=== PATIENT | male | born 1950 | race Caucasian/White ===

== ENCOUNTER 2023-10-13 01:21 | Inpatient (IN) | payer OTHER, SELFPAY ==
[2023-10-12 20:29] VITALS: BMI 54.9
[2023-10-12 20:57] LABS: % Basophils 0.5 % (0-2); % Eosinophils 1.8 % (0-6); % Immature Granulocytes 0.4 % (0-0.5); % Lymphocytes 13.4 % (20.5-51.1); % Monocytes 7.6 % (1.7-9.3); % Neutrophils 76.3 % (42.2-75.2); Absolute Basophils 0.1 10^3/uL (0-0.2); Absolute Eosinophils 0.2 10^3/uL (0-0.7); Absolute Immature Granulocytes 0.1 10^3/uL (0-0.05); Absolute Lymphocytes 1.5 10^3/uL (1.2-3.4); Absolute Monocytes 0.9 10^3/uL (0.1-0.6); Absolute Neutrophils 8.8 10^3/uL (1.4-6.5); Hematocrit 53.4 % (39.0-52.0); Hemoglobin 16.9 g/dL (13.0-18.0); Mean Corp Hgb Conc. 31.6 g/dL (33.0-37.0); Mean Corpuscular Hgb 28.1 pg (27.0-31.0); Mean Corpuscular Volume 88.9 fL (80.0-94.0); Mean Platelet Volume 10.6 fL (7.4-10.4); Nucleated Red Blood Cells % 0 % (-); Platelet Count 214 10^3/uL (130-400); Red Blood Cell Count 6.01 10^6/uL (4.70-6.10); Red Cell Dist. Width 14.4 % (11.5-14.5); White Blood Cell Count 11.5 10^3/uL (4.8-10.8)
[2023-10-12 21:00] VITALS: BP 142/98
[2023-10-12 21:17] LABS: ALT (SGPT) 13 U/L (0-50); AST (SGOT) 19 U/L (17-59); Albumin 3.4 g/dl (3.5-5.0); Alkaline Phosphatase 73 U/L (38-126); Blood Urea Nitrogen 14 mg/dl (9-20); Calcium 8.8 mg/dl (8.4-10.2); Carbon Dioxide 32 mmol/L (22-30); Chloride 96 mmol/L (98-107); Estimated Creatinine Clearance > 125 ml/min; Glucose 146 mg/dl (70-99); Potassium 4.5 mmol/L (3.5-5.1); Sodium 136 mmol/L (135-145); Total Bilirubin 0.5 mg/dl (0.2-1.3); Total Protein 6.5 g/dl (6.3-8.2); eGFR > 60.00
[2023-10-12 21:59] LABS: NT-proBNP 1660 pg/ml; Troponin I < 0.012 ng/ml
[2023-10-12 22:00] VITALS: BP 155/99
[2023-10-12 23:00] VITALS: BP 155/101
[2023-10-12 23:44] LABS: COVID-19 Antigen Negative (Negative)
[2023-10-13] VITALS (18 sets, daily range): BP systolic 93–151; BP diastolic 58–94; PULSE 2–95; BMI 53.1; BMI 53.0
--- NOTE | 2023-10-13 00:12 | ED.GENMED ---
History of Present Illness
General
Chief Complaint: Breathing Problem
Source: patient
Exam Limitations: none
Time Seen by Provider: 10/12/23 20:32
Travel History
Have you had any contact with someone who has COVID-19?: No
Do you have any symptoms of coronavirus? Fever > 100 degrees, chills, cough, shortness of breath, sore throat, loss of taste or smell, muscle aches, or headache?: No
History of Present Illness
History of Present Illness:
73-year-old male presents from home with complaints of shortness of breath worsening over the past 2 to 3 days. He has a history of hypertension hyperlipidemia. He also has a history of gcv-uusxuvn-vktqjsczx diabetes. No chest pain or cough. No
fever. He does note leg swelling. Upon EMS arrival he was hypoxic in the upper 80s requiring 2 L of oxygen
Phy Exam
Physical Exam
Physical Exam:
General: Obese male no acute respiratory distress
HEENT: Normocephalic atraumatic
Heart: Irregular rate and rhythm
Lungs: Breath sounds distant bilaterally secondary to body habitus
Extremities: Significant pitting edema bilateral lower extremities
Skin is warm no rash
Scores
Heart Failure Risk
Heart Failure Risk Score: Not Applicable
Course
Orders/Labs/Results
Orders:
Orders
10/12/23 20:28
ECG [Electrocardiogram (*1)] Urgent
Reason for Study: Other
Other Reason for Exam: tachycardia
EKG- Treatment ONCE
10/12/23 20:44
CR Chest Portable - 1 View Urgent
Comment:
Reason For Exam: sob
Reason Study Needs to be Portable: Unable to Transport
10/12/23 20:49
Complete Blood Count/With Diff Urgent
Comprehensive Metabolic Panel Urgent
10/12/23 21:29
NT-proBNP Urgent
Troponin I Urgent
10/12/23 23:11
COVID-19 Antigen Urgent
Source: Nasal Swab
Influenza A+B Rapid Molecular Urgent
CHRIS Source: Nasal Swab
Specimen Description:
10/13/23 00:08
Furosemide [Lasix] 40 mg IV NOW STA
Abnormal Lab Results
10/12/23
20:49
WBC 11.5 H 10^3/uL
(4.8-10.8)
Hct 53.4 H %
(39.0-52.0)
MCHC 31.6 L g/dL
(33.0-37.0)
MPV 10.6 H fL
(7.4-10.4)
Abs Immat Gran (auto) 0.1 H 10^3/uL
(0-0.05)
Absolute Neuts (auto) 8.8 H 10^3/uL
(1.4-6.5)
Absolute Monos (auto) 0.9 H 10^3/uL
(0.1-0.6)
Neutrophils % 76.3 H %
(42.2-75.2)
Lymphocytes % 13.4 L %
(20.5-51.1)
Chloride 96 L mmol/L
(98-107)
Carbon Dioxide 32 H mmol/L
(22-30)
Creatinine 0.5 L mg/dL
(0.7-1.3)
Glucose 146 H mg/dl
(70-99)
Albumin 3.4 L g/dl
(3.5-5.0)
10/12/23 20:49
10/12/23 20:49
Vital Signs
Initial and Last Documented VS:
Initial Vital Signs
Temp Pulse Resp Pulse Ox
98.3 F 102 26 93
10/12/23 20:29 10/12/23 20:29 10/12/23 20:29 03/15/24 20:29
Last Documented Vital Signs
Temp Pulse Resp BP Pulse Ox
98.3 F 110 20 155/99 93
10/12/23 20:29 10/12/23 23:23 10/12/23 23:23 10/12/23 22:00 10/12/23 23:23
MDM/Problems Addressed
Differential Diagnosis Includes:
Shortness of breath. Hypoxic on room air requiring 2 L of oxygen. Looks volume overloaded. Will check labs including BNP chest x-ray troponin. COVID and flu test ordered as well
*Critical Care Note
Total Time (30-74mins, 75-104mins- exclusive of procedures): Not Applicable
Update Note
Update Note:
Chest x-ray shows atelectasis versus pneumonia however patient does not have a fever cough. I do suspect volume overload in the setting of newly diagnosed atrial fibrillation. Lasix ordered. Will keep in hospital secondary to oxygen requirement
and volume overload status with new diagnosis of A-fib
ED Attending Note
-
Portions of this chart may have been created with voice recognition software.� Occasional wrong word or��sound alike� substitutions may have occurred due to the inherent limitations of voice recognition software.
Discharge Plan
Departure
Patient Disposition: Admit
Date of Disposition: 10/13/23
Time of Disposition: 00:12
Admit to: Telemetry
Presentation/result/management discussed w/ accepting MD/DO: Hospitalist
Discharge Problem:
Volume overload, Atrial fibrillation
Prescriptions:
No Action
enalapril maleate 10 mg Tablet
10 mg PO BID
atorvastatin 10 mg Tablet
10 mg PO HS
citalopram 10 mg Tablet
10 mg PO DAILY
alprazolam 0.5 mg Tablet
1 mg PO HS
Patient Comments:
10/12/2023: last filled 10/01/23, 60 tabs for 30 days from [facility]
buspirone 10 mg Tablet
10 mg PO DAILY
Trulicity 4.5 mg/0.5 mL Pen Injector
4.5 mg SC QWEEK
Referrals:
Jonny Brice MD [Family Provider] -
Interventions
Interventions:
*Risk Screen - Suicide Last Done: 10/12/23 20:41
*Neglect/Abuse Screening Last Done: 10/12/23 20:40
*ED COVID-19 Vaccine History Last Done: 10/12/23 20:38
ED- Cardiac Assessment Last Done: 10/12/23 20:39
ED- Pulmonary Assessment Last Done: 10/12/23 23:23
--- NOTE | 2023-10-13 00:30 | HPS.HSE ---
Family Physician
-
Family Physician: Jonny Brice
Chief Complaint
-
SoB
History of Present Illness
73M chronically bed bound for last 15 yrs due to arthritis and body habitat , never patel to , last admission was 4 yrs ago to [facility], Morbidly obese, Class III Obesity ( BMI 54) HTN,DMT2 pw 1 week HX progressive SoB. Denied CP or cough. Denied
chills and rigors.
POx low 90s on RA
No prior HX CHF. No prior HX AF. No prior HX DVT per at bed side.
Medical History
Past Medical History
Past Medical History: Reports HTN, Hypercholesterolemia, NIDDM and Other (Morbidly obese, Class III Obesity ( BMI 54))
Additional Past Medical History:
chronically bed bound for last 15 yrs due to arthritis and body habitat
Past Surgical History: Reports None
Social History
Tobacco: Non-smoker
Alcohol: None
Drug: None
Personal:
Living: With Family
Family History
Family History: Not pertinent
Allergies / Home Medications
Allergies reflects when Allergies were last updated in [facility].
Home Medications with original date entered in [facility]
Allergy/Medication List:
Allergies
Allergy/AdvReac Type Severity Reaction Status Date / Time
No Known Allergies Allergy Unverified 10/12/23 20:38
Home Medications
alprazolam 0.5 mg tablet 1 mg PO HS 10/12/23
atorvastatin 10 mg tablet 10 mg PO HS 10/12/23
buspirone 10 mg tablet 10 mg PO DAILY 10/12/23
citalopram 10 mg tablet 10 mg PO DAILY 10/12/23
dulaglutide 4.5 mg/0.5 mL subcutaneous pen injector (Trulicity) 4.5 mg SC QWEEK 10/12/23
enalapril maleate 10 mg tablet 10 mg PO BID 10/12/23
Review of Systems
-
Constitutional: Reports No Symptoms
EENT: Reports No Symptoms
Respiratory: Reports See HPI and Trouble Breathing
Cardiac: Reports See HPI
Abdomen/GI: Reports No Symptoms
: Reports No Symptoms
Musculoskeletal: Reports No Symptoms
Skin: Reports No Symptoms
Neurological: Reports No Symptoms
Endocrine: Reports No Symptoms
Hematologic/Lymphatic: Reports No Symptoms
Psych: Reports No Symptoms
Physical Exam
Vital Signs
Vital Signs
Temp Pulse Resp BP Pulse Ox
98.3 F 96 20 151/91 91
10/12/23 20:29 10/13/23 00:00 10/12/23 23:23 10/13/23 00:00 10/13/23 00:00
Physical Exam
General: Other (Morbidly obese, Class III Obesity ( BMI 54))
HEENT: NormoCephalic, Anicteric, Moist mucous membranes and No Ptosis
Respiratory: Other (very limited exam due to body habitat); No Wheezes
Cardiac: S1/S2 and Irregular Rhythm
Breast: Deferred by me
GI: Soft, Non Tender and Other (Morbidly obese, abdomen )
Rectal: Deferred by Provider
Genito-urinary: Deferred by me
Musculoskeletal: Edema, Left Lower Extremity (trace) and Edema, Right Lower Extremity (1 plus )
Skin: Warm
Neuro: AO x 3
Psych: Calm
Laboratory Results
-
10/12/23 20:49
10/12/23 20:49
Laboratory Results
Total Bilirubin 0.5 mg/dl (0.2-1.3) 10/12/23 20:49
AST 19 U/L (17-59) 10/12/23 20:49
ALT 13 U/L (0-50) 10/12/23 20:49
Alkaline Phosphatase 73 U/L (38-126) 10/12/23 20:49
Troponin I < 0.012 ng/ml 10/12/23 21:29
Data Reviewed
-
Diagnostic Radiology: Report Reviewed by me
Medical Tests (Nuc Med, Echo, EKG etc): Report Reviewed by me
Lab Data: Labs Reviewed by me
Impression/Plan
-
Reviewed VS: reviewed POx 93 % on 3L NC O2 HR 90s -100s BP 150/90
Data
WCC 11.5
Hgb 16.9
Cl 96 CO2 32
Cr 0.5
eGFR > 60
NEG TPNI
pro BNP 1660
NEG Covid Ag
EKG report
ATRIAL FIBRILLATION WITH RAPID VENTRICULAR RESPONSE
RIGHT AXIS DEVIATION
NONSPECIFIC T WAVE ABNORMALITY
ABNORMAL ECG
NO PREVIOUS ECGS AVAILABLE
CXR:
Marked left hemidiaphragm elevation with left hemithorax volume loss.
Moderate left basilar atelectasis and/or pneumonia.
ASSESSMENT & PLAN
Dyspnea with Hypoxia
DDX: New onset AF with RVR in 100s, Mild Volume expansion +/_acute HF , acute PE, OHVS /CANDY
[id number]- VASc score 3 ( 1 for age, 1 for HX HTN, 1 for DM)
- IV Lopressor 5mg q6H - heold if HR < 60s
- IV Lasix 40 x 1 in AM
- Empiric Heparin gtt
- Daily Wt
- ECHO
- Stiven US to eval for DVT
- CBC card consult for further eval for OAC
- Pul consult for further eval of acute PE
HX essential HTN on Enalapril
HX HLD on Atorvastatin
HX DMT2 on Dulaglutide, add ISS low
HX chronically bed bound for last 15 yrs due to arthritis and body habitat
Morbidly obese, Class III Obesity ( BMI 54)
- use diaper for urination
- self toileting on bed for defecation
- Independent with feding
DVT Px: Heparin gtt
Code: Full
IMU
[2023-10-13] MEDS: LASIX 40 MG IV ×2 (00:35→08:11)
[2023-10-13 02:09] LABS: APTT 27.9 Sec (23.4-35.0)
[2023-10-13] MEDS: HEPARIN 25000 UNITS/250 ML IV ×2 (02:34→16:34)
[2023-10-13 06:21] LABS: Hematocrit 58.2 % (39.0-52.0); Hemoglobin 18.2 g/dL (13.0-18.0); Mean Corp Hgb Conc. 31.3 g/dL (33.0-37.0); Mean Corpuscular Hgb 28.6 pg (27.0-31.0); Mean Corpuscular Volume 91.5 fL (80.0-94.0); Platelet Count 217 10^3/uL (130-400); Red Blood Cell Count 6.36 10^6/uL (4.70-6.10); Red Cell Dist. Width 14.9 % (11.5-14.5); White Blood Cell Count 12.2 10^3/uL (4.8-10.8)
[2023-10-13 06:23] LABS: Blood Urea Nitrogen 13 mg/dl (9-20); Calcium 8.9 mg/dl (8.4-10.2); Carbon Dioxide 36 mmol/L (22-30); Chloride 97 mmol/L (98-107); Estimated Creatinine Clearance > 125 ml/min; Glucose 117 mg/dl (70-99); HDL Cholesterol 34 mg/dl; LDL Cholesterol, Calculated 75 mg/dl; Sodium 138 mmol/L (135-145); Total Cholesterol 137 mg/dl (50-199); Triglyceride 141 mg/dl (10-149); Very Low Density Lipoprotein 28 mg/dl (0-30); eGFR > 60.00
[2023-10-13 06:26] LABS: APTT 39.2 Sec (23.4-35.0)
[2023-10-13 06:56] LABS: TSH Reflex To Free T4 4.11 uIU/ml (0.47-4.68)
[2023-10-13 08:05] LABS: Glucose - Point of Care 133 mg/dl (70-99)
[2023-10-13] MEDS: BUSPAR 10 MG PO (08:13)
[2023-10-13] MEDS: CELEXA 10 MG PO (08:13)
[2023-10-13 08:32] LABS: APTT 79.2 Sec (23.4-35.0)
[2023-10-13 09:31] LABS: Glycohemoglobin (HgbA1c) 6.6 % (4.0-5.6)
[2023-10-13] MEDS: VASOTEC 10 MG PO (10:47)
[2023-10-13] MEDS: CARDIZEM 10 MG IV (11:14)
[2023-10-13] MEDS: CARDIZEM 125 IV (11:18)
--- NOTE | 2023-10-13 11:30 | CON.CAR ---
Addendum entered and electronically signed by Lior Weems MD 10/13/23 13:13:
I saw and examined the patient.
The METALIZING MACHINE OPERATOR's note was reviewed and I agree with the note.
Comment: 73 y/o pt. with morbid obesity, arthritis who is bed bound at home. PMH HTN, HLD, and DM.� He had developed worsening SOB over at least 1 week.� He appears to be in CHF and new AF RVR.
- dilt gtt
- diuresis
- K > 4 Mag > 2
- does not need heparin from cardiac stand point
- TTE pending
Original Note:
Consultation
Consultation Request
Date/Time Consultation Requested: 10/13/23 0800
Date/Time Consultation Performed: 10/13/23 1100
Requesting Provider: Dr. Conley
Performing Provider: Dr. Weems
Reason for Consultation: AF RVR
Medical History
-
Chief Complaint: SOB
History of Present Illness:
73 y/o pt. with morbid obesity, arthritis who is bed bound at home. PMH HTN, HLD, and DM. He had developed worsening SOB over at least 1 week. Denies any fevers, or cough. Noted on admit with hypoxia, AF RVR which is new for pt, and volume
overload. He denies prior cardiac history. In IMU noted with hypoxia despite nasal canula O2. AF RVR with rates 120-130's currently.
Past Medical History
Past Medical History: HTN, Hypercholesterolemia, NIDDM and Other
Past Surgical History: None
Social History
Tobacco: Non-Smoker
Alcohol: None
Drug: None
Personal:
Living: With Family
Family History
Family History: Reviewed & Not Pertinent
Allergies / Home Medications
Allergy/AdvReac Type Severity Reaction Status Date / Time
No Known Allergies Allergy Unverified 10/12/23 20:38
Medication Instructions Recorded Confirmed Type
alprazolam 0.5 mg tablet 1 mg PO HS 10/12/23 10/12/23 History
atorvastatin 10 mg tablet 10 mg PO HS 10/12/23 10/12/23 History
buspirone 10 mg tablet 10 mg PO DAILY 10/12/23 10/12/23 History
citalopram 10 mg tablet 10 mg PO DAILY 10/12/23 10/12/23 History
dulaglutide 4.5 mg/0.5 mL 4.5 mg SC QWEEK 10/12/23 10/12/23 History
subcutaneous pen injector
(Trulicity)
enalapril maleate 10 mg tablet 10 mg PO BID 10/12/23 10/12/23 History
Review of Systems
-
History Source: Patient
Constitutional: No Symptoms
EENT: No Symptoms
Respiratory: Trouble Breathing
Cardiac: No Symptoms
Abdomen/GI: No Symptoms
Musculoskeletal: Other (chronic arthritis)
Skin: No Symptoms
Neurological: No Symptoms
Physical Exam
Vital Signs
Temp Pulse Resp BP Pulse Ox
97.9 F 112 20 139/94 94
10/13/23 11:24 10/13/23 11:14 10/12/23 23:23 10/13/23 11:14 10/13/23 04:46
Lab Results
10/13/23 05:52
10/13/23 05:52
Troponin I < 0.012 ng/ml 10/12/23 21:29
Ese-J-Miikpydgoyo Pept 1660 pg/ml 10/12/23 21:29
Physical Exam
General: Well Developed and No Apparent Distress
HEENT: Normocephalic
Cardiac: S1/S2 and Irregular Rhythm (tachycardia)
Breast: Deferred by me
GI: Soft, Non Distended and Normal Bowel Sounds
Musculoskeletal: Edema (moderate bilate LE edema )
Skin: Warm and Dry
Neuro: AO x 3
Psych: Calm
Impression / Plan
-
New onset AF RVR:
-unknown duration
-Rapid rates- will start IV diltiazem
-CHADSVASC 3 ( 4 with CHF now )
-currently on IV heparin- eventual transition to eliquis
-chec echo once rate controlled
-pt does snore likely CANDY as well
CHF unknown type in setting of AF RVR:
-BNP mildly elevated,hypoxia, edema
-con't IV diuresis
-check echo
-fluid /sodium restrictions
dyspnea/hypoxia:
-pulm consulted
HTN:
-con't meds
Hyperlipidemia:
-on statin
Data Reviewed
-
EKG: Tracing Personally Visualized and interpreted (AF RVR 105 bpm, non specific T wave abn )
Radiology: Report Reviewed by me (CXR Marked left hemidiaphragm elevation with left hemithorax volume loss. Moderate left basilar atelectasis and/or pneumonia.)
Ultrasound: Report Reviewed by me (LE US: Marked left hemidiaphragm elevation with left hemithorax volume loss. Moderate left basilar atelectasis and/or pneumonia.)
Labs: Labs Reviewed by me, Discussed with Physician and Discussed with Patient
[2023-10-13 11:55] LABS: Glucose - Point of Care 116 mg/dl (70-99)
--- NOTE | 2023-10-13 12:14 | CON.PUL ---
Consultation
Consultation Request
Date/Time Consultation Requested: 10/13/2023
Date/Time Consultation Performed: 10/13/2023
Requesting Provider:
Performing Provider: Dr. Judson Trevino
Reason for Consultation: Exertional dyspnea/hypoxemic respiratory failure
Medical History
-
History of Present Illness:
73-year-old man that for the last 15 years has been bedbound due to arthritis and body habitus, first admission to [facility], has been admitted to [facility] in the past. Morbidly obese, history of hypertension, type 2 diabetes who complains
of progressive shortness of breath for the last week. There is no reports of fevers, chills, hemoptysis, purulent sputum production. Pulse ox was 90% on room air.
Past Medical History
Past Medical History: Other (See assessment and plan section)
Social History
Tobacco: Non-smoker
Alcohol: None
Drug: None
Personal:
Living: With Family
Family History
Family History: Reviewed & Not Pertinent
Allergies / Home Medications
Allergies
Allergy/AdvReac Type Severity Reaction Status Date / Time
No Known Allergies Allergy Unverified 10/12/23 20:38
Home Medications
Medication Instructions Recorded Confirmed Last Taken Type
alprazolam 0.5 mg tablet 1 mg PO HS 10/12/23 10/12/23 Unknown History
atorvastatin 10 mg tablet 10 mg PO HS 10/12/23 10/12/23 Unknown History
buspirone 10 mg tablet 10 mg PO DAILY 10/12/23 10/12/23 Unknown History
citalopram 10 mg tablet 10 mg PO DAILY 10/12/23 10/12/23 Unknown History
dulaglutide 4.5 mg/0.5 mL 4.5 mg SC QWEEK 10/12/23 10/12/23 Unknown History
subcutaneous pen injector
(Trulicity)
enalapril maleate 10 mg tablet 10 mg PO BID 10/12/23 10/12/23 Unknown History
Review of Systems
-
History Source: Patient
All other systems: Negative unless noted
Vitals / Labs / Diagnostic Testing
Vital Signs
Temp Pulse Resp BP Pulse Ox
97.9 F 93 19 139/94 96
10/13/23 11:24 10/13/23 11:45 10/13/23 11:45 10/13/23 11:14 10/13/23 11:50
Lab Data
10/13/23 05:52
10/13/23 05:52
Laboratory Results
10/13/23 10/13/23 10/13/23
01:50 05:52 08:10
APTT 27.9 39.2 H 79.2 H
Microbiology
10/12/23 23:11 Nasal Swab Influenza Types A & B (GA) - Final
Negative for Influenza A & B, NAAT
Negative results must be combined with clinical observations
and patient history.
Nucleic Acid Amplification test (NAAT)performed on the
[employer] platform.
Diagnostic Testing:
Physical Exam
-
HEENT: Normocephalic
Cardiovascular: S1/S2
Respiratory: Non-Labored Respirations
GI: Soft and Distended (Obese)
Neurology: Awake, Alert, Oriented and AO x 3
Skin: Warm
General: Respiratory Distress (none at rest) and Other
Assessment
-
Acute hypoxemic respiratory insufficiency currently on 8L NC, pulse ox 95% (usually not on supplemental oxygen)
Dyspnea
proBNP 1760/negative troponins
Negative COVID
Chest x-ray reviewed: Marked left hemidiaphragm elevation on the left hemithorax with volume loss. Moderate left basilar atelectasis/cannot rule out pneumonia.
Atrial fibrillation with rapid ventricular response-heart rate in the 120s-130s
Suspect component of heart failure acute-unknown type
Conditions present prior admission:
Hypertension
Hypercholesterolemia
Type 2 diabetes
Morbid obesity
Bedbound status for the last 15 years
Chronic arthritis
Assessment and plan:
Suspect exertional dyspnea mainly from rapid atrial fibrillation.
Possibly some degree of pulmonary vascular congestion/acute heart failure of unknown type as well.
Cardiology correspondence reviewed
Currently on heparin drip-follow PTT
Eventual echocardiogram
Agree with IV diuresis
Follow renal function and electrolytes
-
Likely patient has obstructive sleep apnea or obesity hypoventilation syndrome.
He is bedbound, likely unable to follow-up.
Avoid sedatives
Has chronic metabolic alkalosis suggestive of chronic hypercapnic respiratory failure
Obtain ABG on room air
-
Abnormal chest x-ray: Left shift of the mediastinum to the left. This is also contributing to hypoxemia as well as his morbid obesity.
Suspect left lower lobe abnormality more consistent with atelectasis.
Significant left hemidiaphragm elevation.
I doubt this is a new finding.
For now will encourage incentive spirometry
Avoid sedatives
I will obtain an ABG to rule out hypercapnia as well.
Prior x-rays will be helpful to compare.
Monitor white blood cells and fevers. If fevers develop can consider antibiotics for pneumonia.
-
Thromboembolic disease also in the differential diagnosis.
Patient already on anticoagulation for atrial fibrillation, follow PTT.
Unlikely to slubber frame changer at this point.
Follow echocardiogram
Lower extremity Dopplers negative. Limited study.
-
DVT prophylaxis on chronic anticoagulation.
[2023-10-13 13:12] LABS: B.E. 7.9 mmol/L; HCO3 38.4 mmol/L (21-28); O2 Saturation % 91.2 % (94-98); PO2 61 mmHg (83-108)
[2023-10-13 13:14] LABS: O2 Therapy RA
[2023-10-13 13:17] LABS: PCO2 78 mmHg (35-48)
--- NOTE | 2023-10-13 13:59 | W.PN.UPDATE ---
Update Note
Progress Note Update
ABG noted with acute on chronic hypoxemic respiratory failure.
Patient currently alert, coughing on demand and cooperative.
Start BiPAP 14/03 to be used intermittently throughout the day and at bedtime.
[2023-10-13 14:30] LABS: APTT 76.1 Sec (23.4-35.0)
--- NOTE | 2023-10-13 14:37 | CM ---
Patient with Hx including morbid obesity and bedbound status, with Dx Dyspnea with Hypoxia, possible acute HF, acute PE. O2 8L midflow. BIPAP. Cardizem gtt, Heparin gtt.
Met with patient who resides with his in a one story house with 2 GEORGINA.
The patient has been assisted with ADLs by his , who is his caregiver, as well as private caregivers.
The patient is bedbound in a hospital bed.
He no longer uses the rodolfo lift or w/c.
DME - hospital bed, rodolfo lift, w/c
VN - none
SNF - none
PCP - Jonny Brice who does home visits
Pharmacy - [facility]
The patient's has caregivers ---Sun for 6 hrs/day. He cannot remember the name of the CG agency.
The patient has a daughter and grand-daughter, he also has 3 stepchildren their 3 grand-children.
The patient transports by ambulance.
Plan watch for home O2 needs.
Plan home by bariatric ambulance.
--- NOTE | 2023-10-13 14:54 | PTCARENOTE ---
Pt sleepong on and off . Hr controlled with cardizem. Heparin theraputic, VSS. Family at bedside
--- NOTE | 2023-10-13 15:20 | W.PN.HOSP.TC ---
Addendum entered and electronically signed by Uday Forbes MD 10/13/23 18:13:
#Acute on chronic hypoxic and hypercapnic respiratory failure
Original Note:
Today's Communication/Plan
-
hep ggt
Dilt ggt
IV lasix
echo
BiPAP 14/03 nights, naps
Assessment / Plan
Assessment / Plan
Physical Exam
General: Other (Morbidly obese, Class III Obesity ( BMI 54))
HEENT: NormoCephalic, Anicteric, Moist mucous membranes and No Ptosis
Respiratory: Other (very limited exam due to body habitat); No Wheezes
Cardiac: S1/S2 and Irregular Rhythm
Breast: Deferred by me
GI: Soft, Non Tender and Other (Morbidly obese, abdomen )
Rectal: Deferred by Provider
Genito-urinary: Deferred by me
Musculoskeletal: Edema, Left Lower Extremity (trace) and Edema, Right Lower Extremity (1 plus )
Skin: Warm
Neuro: AO x 3
Psych: Calm
#Acute on chronic hypoxemic respiratory failure
#Dyspnea
� Most likely has underlying CANDY/OHS due to obesity
� Acute symptoms/hypoxia most likely secondary to atrial fibrillation and volume overload
� Continue to treat with IV Lasix, rate control
� Start NIV 14/03 at naps and at night
� Will benefit from BiPAP as outpatient, follow-up pulmonary closely
� Avoid sedatives, benzodiazepines
� Thromboembolism also on dx although less likely as already have other likely source, and alert already on heparin drip which would not change plan even if PE study is positive; DVT study negative
- F/u ECHO
#Atrial fibrillation with RVR
� Continue heparin drip
� Continue AV toney blockade
� Follow cardiology recommendations
� Echo f/u
#Possible decompensated heart failure, unknown type
� May also be exacerbated by acute arrhythmia
� Follow-up echo
� Continue IV Lasix
#Most likely underlying CANDY/OHS
� Follow-up pulmonary outpatient
� BiPAP 14/03 naps and nightly
#Hypertension
#Hyperlipidemia
� Continue medications
#DM
-cont AISS, Trulicity
#Morbid Obesity
-weight loss
F/u bariatrics outpatient
#Bed bound
#DVT ppx
-Hep ggt
Total time spent on today's encounter was 55 minutes which included time spent in counseling the patient/family regarding diagnosis and treatment plan as listed above, goals of care, and symptom management. Case was discussed with nursing staff,
specialists, and care coordinators/case management. All labs and imaging personally reviewed by me. Remainder the time spent in detailed review of previous records, lab data, imaging, and other medical provider documentation.
Anticipated Discharge: Today
Subjective/Interval History
-
Date of Service: October 13, 2023
no acute events
Objective Data
-
Labs:
Laboratory Results
10/13/23 10/13/23 10/13/23
05:52 08:10 13:00
WBC 12.2 H
Hgb 18.2 H
Hct 58.2 H
Plt Count 217
APTT 39.2 H 79.2 H
HCO3 38.4 H
Sodium 138
Potassium 5.0
Chloride 97 L
Carbon Dioxide 36 H
BUN 13
Creatinine 0.6 L
Glucose 117 H
Calcium 8.9
10/13/23
14:12
WBC
Hgb
Hct
Plt Count
APTT 76.1 H
HCO3
Sodium
Potassium
Chloride
Carbon Dioxide
BUN
Creatinine
Glucose
Calcium
Vital Signs:
Vital Signs
Temp Pulse Resp BP Pulse Ox
98.8 F 93 16 109/84 93
10/13/23 15:14 03/16/24 14:30 10/13/23 14:30 10/13/23 14:00 10/13/23 14:30
I&O
10/12/23 10/13/23 10/14/23
06:59 06:59 06:59
Output Total 600 / 600
Balance -600 / -600
Review of Systems
-
History Source: Patient
All other systems: Not reviewed unless documented
Data Reviewed
-
Diagnostic Radiology: Image personally visualized and interpreted and Report Reviewed by me
Ultrasound: Image personally visualized and interpreted and Report Reviewed by me
Labs: Labs Reviewed by me
[2023-10-13 17:02] LABS: Glucose - Point of Care 108 mg/dl (70-99)
[2023-10-13] MEDS: XANAX 1 MG PO (21:08)
[2023-10-13] MEDS: LIPITOR 10 MG PO (21:08)
[2023-10-13 21:21] LABS: Glucose - Point of Care 114 mg/dl (70-99)
[2023-10-14] VITALS (26 sets, daily range): BP systolic 84–124; BP diastolic 54–104; PULSE 2–91; BMI 52.7; BMI 55.7
--- NOTE | 2023-10-14 02:22 | PTCARENOTE ---
Addendum entered by Renae Hamlin RN 10/14/23 02:34:
Pt continues on heparin gtt and Cardizem gtt (see work list for titration).
Original Note:
Assumed care of Pt from day RN. PT AAOX3 Pt appears to be resting in bed with at bed side. Pt and inform this RN that Pt came from home with rash on L neck and armpit that is being treated with antifungal, order for Desenex sent. Pt is
also in need of bariatric bed, soaking pits supervisor called and informed, wound care consult for antifungal and needed special bed. Pt currently in [facility] max air bed, Pt is unable to be fully rolled over and supported due to bed being to small and
side rales creating pressure points and discomfort. Pt shifting self with help of staff. Pt appears to be tolerating BiPAP, respirations even and unlabored. Assessment care and vitals as charted.
[2023-10-14 05:14] LABS: % Basophils 0.5 % (0-2); % Eosinophils 1.3 % (0-6); % Immature Granulocytes 0.5 % (0-0.5); % Lymphocytes 12.7 % (20.5-51.1); Absolute Basophils 0.1 10^3/uL (0-0.2); Absolute Eosinophils 0.1 10^3/uL (0-0.7); Absolute Immature Granulocytes 0.1 10^3/uL (0-0.05); Absolute Lymphocytes 1.4 10^3/uL (1.2-3.4); Absolute Monocytes 1.1 10^3/uL (0.1-0.6); Absolute Neutrophils 8.2 10^3/uL (1.4-6.5); Hematocrit 50.7 % (39.0-52.0); Hemoglobin 15.2 g/dL (13.0-18.0); Mean Corpuscular Hgb 27.9 pg (27.0-31.0); Mean Platelet Volume 11.6 fL (7.4-10.4); Nucleated Red Blood Cells % 0 % (-); Platelet Count 181 10^3/uL (130-400); Red Blood Cell Count 5.45 10^6/uL (4.70-6.10); Red Cell Dist. Width 14.5 % (11.5-14.5); White Blood Cell Count 10.9 10^3/uL (4.8-10.8)
[2023-10-14 05:22] LABS: APTT 62.8 Sec (23.4-35.0)
[2023-10-14 05:38] LABS: Blood Urea Nitrogen 18 mg/dl (9-20); Calcium 7.8 mg/dl (8.4-10.2); Carbon Dioxide 35 mmol/L (22-30); Chloride 95 mmol/L (98-107); Estimated Creatinine Clearance > 125 ml/min; Glucose 100 mg/dl (70-99); Magnesium 1.6 mg/dl (1.6-2.3); Potassium 4.2 mmol/L (3.5-5.1); Sodium 135 mmol/L (135-145); eGFR > 60.00
[2023-10-14] MEDS: HEPARIN 10000 UNITS IV (05:47)
[2023-10-14] MEDS: HEPARIN 25000 UNITS/250 ML IV (06:00)
[2023-10-14] MEDS: CARDIZEM 125 IV (06:04)
--- NOTE | 2023-10-14 06:45 | PTCARENOTE ---
Pt morning lab APTT 62.8 heparin now at 2500u, verified with pharmacy. Pt rolled and changed assist X4, very uncomfortable for Pt due to bed size being small and arthritis.
[2023-10-14 07:37] LABS: Glucose - Point of Care 100 mg/dl (70-99)
[2023-10-14] MEDS: BUSPAR 10 MG PO (08:02)
[2023-10-14] MEDS: LASIX 40 MG IV (08:02)
[2023-10-14] MEDS: CELEXA 10 MG PO (08:02)
[2023-10-14] MEDS: DESENEX/MITRAZOL/ZEASORB 1 APPLIC TOPICAL ×2 (08:19→20:54)
--- NOTE | 2023-10-14 09:57 | W.PN.CD ---
Today's Communication / Plan
-
Continue IV diuresis
Impression / Plan
-
New onset AF RVR:
-unknown duration
-Rapid rates- continue IV diltiazem, transition to po tomorrow short acting 60mg q6 hrs
-CHADSVASC 3 ( 4 with CHF now )
-currently on IV heparin- eventual transition to eliquis
-check echo once rate controlled
-pt does snore likely CANDY as well
CHF unknown type in setting of AF RVR:
-BNP mildly elevated,hypoxia, edema
-con't IV diuresis
-check echo
-fluid /sodium restrictions
dyspnea/hypoxia:
-pulm consulted
HTN:
-con't meds
Hyperlipidemia:
-on statin
Morbid obesity affecting all aspects of care
Physical Exam
Vital Signs/Labs
Vital Signs
Temp Pulse Resp BP Pulse Ox
97.8 F 85 14 114/82 94
10/14/23 07:51 10/14/23 06:00 10/14/23 06:00 10/14/23 06:00 10/14/23 08:07
10/13/23 10/14/23 10/15/23
06:59 06:59 06:59
Actual Weight 413 lb 0.012 oz 410 lb 4.484 oz
10/14/23 04:36
10/14/23 04:36
APTT 62.8 Sec (23.4-35.0) H 10/14/23 04:36
Magnesium 1.6 mg/dl (1.6-2.3) 10/14/23 04:36
Triglycerides 141 mg/dl (10-149) 10/13/23 05:52
LDL Cholesterol, Calc 75 mg/dl 10/13/23 05:52
VLDL Cholesterol, Calc 28 mg/dl (0-30) 10/13/23 05:52
HDL Cholesterol 34 mg/dl 10/13/23 05:52
10/12/23 10/12/23 10/12/23
20:49 21:12 21:29
Uhd-P-Dfkstkicdsa Pept Cancelled Cancelled 1659
LAB Results
10/12/23 10/12/23 10/12/23
20:49 21:12 21:29
Troponin I Cancelled Cancelled < 0.012
Physical Exam
Constitutional: No acute distress
Cardiovascular: Rhythm/rate is irregular and Pedal edema present
Respiratory: Respiratory effort normal and Crackles Present
GI: Soft (obese)
Neuro/Psych: Alert and Oriented
Data Reviewed
-
Date of Service: October 14, 2023
EKG: Tracing Personally Visualized and interpreted
Labs: Labs Reviewed by me
--- NOTE | 2023-10-14 10:27 | CM ---
Patient with Hx including morbid obesity and bedbound status, with Dx Dyspnea with Hypoxia, possible acute HF, acute PE. O2 6L. BiPAP. Receiving Cardizem gtt, Heparin gtt.
CM Consult: cruz check Eliquis 5mg BID
Spoke with pharmacist, [facility] [place]; the patient has 100% coverage for Eliquis - no copay.
Dr Forbes informed.
Plan watch for home O2 needs.
Plan home by bariatric ambulance.
[2023-10-14 13:01] LABS: Glucose - Point of Care 83 mg/dl (70-99)
--- NOTE | 2023-10-14 15:18 | W.PN.HOSP.TC ---
Today's Communication/Plan
-
Continue IV diuresis
Start Cardizem p.o. tomorrow, continue drip for now
Eliquis initiation tonight, can discontinue heparin drip 1 hour prior to Eliquis administration
BiPAP nightly and at naps
Assessment / Plan
Assessment / Plan
Physical Exam
General: Other (Morbidly obese, Class III Obesity ( BMI 54))
HEENT: NormoCephalic, Anicteric, Moist mucous membranes and No Ptosis
Respiratory: Other (very limited exam due to body habitat); No Wheezes
Cardiac: S1/S2 and Irregular Rhythm
Breast: Deferred by me
GI: Soft, Non Tender and Other (Morbidly obese, abdomen )
Rectal: Deferred by Provider
Genito-urinary: Deferred by me
Musculoskeletal: Edema, Left Lower Extremity (trace) and Edema, Right Lower Extremity (1 plus )
Skin: Warm
Neuro: AO x 3
Psych: Calm
#Acute on chronic hypoxemic respiratory failure
#Dyspnea
� Most likely has underlying CANDY/OHS due to obesity
� Acute symptoms/hypoxia most likely secondary to atrial fibrillation and volume overload
� Continue to treat with IV Lasix, rate control
� Start NIV 16/8 at naps and at night
� Will benefit from BiPAP as outpatient, follow-up pulmonary closely
� Avoid sedatives, benzodiazepines
� Thromboembolism also on dx although less likely as already have other likely source, and alert already on heparin drip which would not change plan even if PE study is positive; DVT study negative
- F/u ECHO
#Atrial fibrillation with RVR
� Continue heparin drip - switch to eliquis tonight
� Continue AV toney blockade - start Cardizem PO tomorrow
� Follow cardiology recommendations
� Echo f/u once rate controlled
#Possible decompensated heart failure, unknown type
� May also be exacerbated by acute arrhythmia
� Follow-up echo
� Continue IV Lasix
#Most likely underlying CANDY/OHS
� Follow-up pulmonary outpatient
� BiPAP 16/8 naps and nightly
#Hypertension
#Hyperlipidemia
� Continue medications
#DM
-cont AISS, Trulicity
#Morbid Obesity
-weight loss
F/u bariatrics outpatient
#Bed bound
#DVT ppx
-Hep ggt - to eliquis today
Total time spent on today's encounter was 50 minutes which included time spent in counseling the patient/family regarding diagnosis and treatment plan as listed above, goals of care, and symptom management. Case was discussed with nursing staff,
specialists, and care coordinators/case management. All labs and imaging personally reviewed by me. Remainder the time spent in detailed review of previous records, lab data, imaging, and other medical provider documentation.
Anticipated Discharge: > 48 hours
Subjective/Interval History
-
Date of Service: October 14, 2023
Tolerated BiPAP well
Objective Data
-
Labs:
Laboratory Results
10/14/23 10/14/23
04:36 12:00
WBC 10.9 H
Hgb 15.2
Hct 50.7
Plt Count 181
APTT 62.8 H Pending
Sodium 135
Potassium 4.2
Chloride 95 L
Carbon Dioxide 35 H
BUN 18
Creatinine 0.6 L
Glucose 100 H
Calcium 7.8 L
Vital Signs:
Vital Signs
Temp Pulse Resp BP Pulse Ox
98.2 F 85 14 114/82 94
10/14/23 11:18 10/14/23 06:00 10/14/23 06:00 10/14/23 06:00 10/14/23 08:07
I&O
10/13/23 10/14/23 10/15/23
06:59 06:59 06:59
Intake Total 1295 / 1295
Output Total 850 / 850
Balance 445 / 445
Review of Systems
-
History Source: Patient
All other systems: Not reviewed unless documented
Data Reviewed
-
Diagnostic Radiology: Image personally visualized and interpreted and Report Reviewed by me
Ultrasound: Image personally visualized and interpreted and Report Reviewed by me
Labs: Labs Reviewed by me
--- NOTE | 2023-10-14 15:22 | W.PN.PUL3 ---
Today's Communication / Plan
-
Continue BiPAP with naps and at bedtime
Repeat ABG tomorrow
Continue diuretics
Heparin drip
Cardizem drip
Monitor electrolytes
Wean off oxygen
Assessment
-
Acute hypoxemic respiratory insufficiency currently on 8L NC, pulse ox 95% (usually not on supplemental oxygen)
Dyspnea
proBNP 1760/negative troponins
Negative COVID
Chest x-ray reviewed: Marked left hemidiaphragm elevation on the left hemithorax with volume loss. Moderate left basilar atelectasis/cannot rule out pneumonia.
Atrial fibrillation with rapid ventricular response-heart rate in the 120s-130s
Suspect component of heart failure acute-unknown type
Conditions present prior admission:
Hypertension
Hypercholesterolemia
Type 2 diabetes
Morbid obesity
Bedbound status for the last 15 years
Chronic arthritis
Assessment and plan:
Suspect exertional dyspnea/hypoxemia mainly from rapid atrial fibrillation.
Possibly some degree of pulmonary vascular congestion/acute heart failure of unknown type as well.
Cardiology correspondence reviewed
Eventual echocardiogram
Continue IV diuresis
Continue Cardizem drip
Continue heparin drip follow PTT.
Follow renal function and electrolytes
wean off oxygen. Maintain pulse ox above 90%. Improved oxygenation.
-
Likely patient has obstructive sleep apnea or obesity hypoventilation syndrome.
He is bedbound, likely unable to follow-up.
Avoid sedatives
Has chronic metabolic alkalosis suggestive of chronic hypercapnic respiratory failure
ABG on room air: 10/13/2023---->7. acute on chronic hypercapnic respiratory failure
BiPAP started to be used intermittently and at bedtime.
Repeat ABG in the morning.
Likely will need noninvasive mechanical ventilation, the complicating factor is that this patient cannot follow-up, he is bedbound due to his morbid obesity. He only has been followed by his primary care doctor who comes to his house. Unclear if
these physician has expertise for BiPAP follow-up.
Discussed with patient and in detail by Dr. Trevino 10/14/2023.
-
Abnormal chest x-ray: Left shift of the mediastinum to the left. This is also contributing to hypoxemia as well as his morbid obesity.
Suspect left lower lobe abnormality more consistent with atelectasis.
Significant left hemidiaphragm elevation.
I doubt this is a new finding.
For now will encourage incentive spirometry
Avoid sedatives
Prior x-rays will be helpful to compare.
Afebrile/leukocytosis improving. No indication for antibiotics.
-
Thromboembolic disease also in the differential diagnosis.
Patient already on anticoagulation.
Unlikely to chart changer at this point.
Follow echocardiogram
Lower extremity Dopplers negative. Limited study.
-
DVT prophylaxis will be on chronic anticoagulation.
Subjective Data
-
Date of Service:
Date of Service: October 14, 2023
Chief Complaint: Pulmonary Follow Up (Acute on chronic hypercapnic respiratory failure/rapid atrial fibrillation)
Subjective:
Patient offers no new complaints
Tolerated BiPAP overnight
No significant coughing or phlegm production.
Review of Systems
Cardiopulmonary: Dyspnea (None at rest), Cough (n), Sputum Production and Wheezing (n)
GI: Abdominal Pain (n) and Nausea (n)
Objective Data
Data Reviewed
Vital Signs / I&O / Oxygen:
Vital Signs
Temp Pulse Resp BP Pulse Ox
98.2 F 85 14 114/82 94
10/14/23 11:18 10/14/23 06:00 10/14/23 06:00 10/14/23 06:00 10/14/23 08:07
Intake and Output
10/13/23 10/14/23 10/15/23
06:59 06:59 06:59
Intake Total 1295 / 1295
Output Total 850 / 850
Balance 445 / 445
SaO2 94
Nasal Cannula flow liters per 8
minute
Physical Exam
General: Respiratory Distress (n)
HEENT: Normocephalic (n)
Cardiovascular: Irregular Rhythm
Respiratory: Clear, Non-Labored Respirations and Other (Difficult exam due to morbid obesity.)
GI: Distended (Obese)
Labs/Micro/Reports
Lab Data
10/14/23 04:36
10/14/23 04:36
Laboratory Results
10/14/23
04:36
APTT 62.8 H
Microbiology
10/12/23 23:11 Nasal Swab Influenza Types A & B (GA) - Final
Negative for Influenza A & B, NAAT
Negative results must be combined with clinical observations
and patient history.
Nucleic Acid Amplification test (NAAT)performed on the
[employer] platform.
[2023-10-14 16:21] LABS: APTT > 200 Sec (23.4-35.0)
[2023-10-14 18:00] LABS: Glucose - Point of Care 107 mg/dl (70-99)
[2023-10-14] MEDS: ELIQUIS 5 MG PO (20:53)
[2023-10-14] MEDS: XANAX 1 MG PO (21:07)
[2023-10-14] MEDS: LIPITOR 10 MG PO (21:07)
[2023-10-14 22:02] LABS: Glucose - Point of Care 95 mg/dl (70-99)
--- NOTE | 2023-10-14 22:45 | PTCARENOTE ---
Pt now in bariatric bed and appeals to be much more comfortable. Pt placed on BiPAP at HS. Pt having periods of SPO2 dropping to low 80's while on Bipap. Pt returning to 90's when woken up. Rt made aware, BiPAP checked, Pt also placed in reverse
Trendelenburg for better air movement. Pt now remaining in the 90% for SPO2. Assessment care and vitals as charted.
[2023-10-15] VITALS (14 sets, daily range): BP systolic 94–168; BP diastolic 54–105; PULSE 2–85; BMI 54.4
[2023-10-15 04:39] LABS: Hematocrit 47.3 % (39.0-52.0); Mean Corp Hgb Conc. 31.7 g/dL (33.0-37.0); Mean Corpuscular Hgb 28.4 pg (27.0-31.0); Mean Corpuscular Volume 89.4 fL (80.0-94.0); Mean Platelet Volume 10.5 fL (7.4-10.4); Platelet Count 156 10^3/uL (130-400); Red Blood Cell Count 5.29 10^6/uL (4.70-6.10); Red Cell Dist. Width 14.3 % (11.5-14.5); White Blood Cell Count 9.6 10^3/uL (4.8-10.8)
[2023-10-15 05:43] LABS: B.E. 11.1 mmol/L; HCO3 38.3 mmol/L (21-28); O2 Saturation % 93.3 % (94-98); PCO2 59 mmHg (35-48); PO2 62 mmHg (83-108); pH 7.42 (7.35-7.45)
--- NOTE | 2023-10-15 06:10 | W.PN.PUL3 ---
Today's Communication / Plan
-
Case management evaluation for home oxygen, nocturnal BiPAP
Check nocturnal oximetry tonight on BiPAP
Remains on heparin drip
Repeat chest x-ray 10/15, I ordered
Echocardiogram pending
Assessment
-
Acute hypoxemic respiratory insufficiency currently on 8L NC, pulse ox 95% (usually not on supplemental oxygen)
Dyspnea
proBNP 1760/negative troponins
Negative COVID
Chest x-ray reviewed: Marked left hemidiaphragm elevation on the left hemithorax with volume loss. Moderate left basilar atelectasis/cannot rule out pneumonia.
Atrial fibrillation with rapid ventricular response-heart rate in the 120s-130s
Suspect component of heart failure acute-unknown type
Conditions present prior admission:
Hypertension
Hypercholesterolemia
Type 2 diabetes
Morbid obesity
Bedbound status for the last 15 years
Chronic arthritis
Assessment and plan:
At this time, patient appears to be comfortable, tolerating BiPAP 18/8, 6 L
Chest exam is clear, decreased
ABG this morning 7.42/59/62
Suspect exertional dyspnea/hypoxemia mainly from rapid atrial fibrillation.
Possibly some degree of pulmonary vascular congestion/acute heart failure of unknown type as well.
Moving forward
Eventual echocardiogram
Continue IV diuresis
Heart rate better controlled, weight increased to 192 kg
I's and O's, appears to be positive
Continue Cardizem drip
Continue heparin drip follow PTT, greater than 200 at this time .
Follow renal function and electrolytes
wean off oxygen. Maintain pulse ox above 90%. Improved oxygenation.
-
ABG reviewed
Likely patient has obstructive sleep apnea or obesity hypoventilation syndrome.
He is bedbound, likely unable to follow-up.
Avoid sedatives
Has chronic metabolic alkalosis suggestive of chronic hypercapnic respiratory failure
BiPAP started to be used intermittently and at bedtime. This will continue
Likely will need noninvasive mechanical ventilation, the complicating factor is that this patient cannot follow-up, he is bedbound due to his morbid obesity. He only has been followed by his primary care doctor who comes to his house. Unclear if
these physician has expertise for BiPAP follow-up.
Discussed with patient and in detail by Dr. Trevino 10/14/2023.
Will have case management evaluate for home BiPAP if possible
May consider oxygen therapy at the least as patient has hypoxia despite being on BiPAP
Check nocturnal oximetry tonight on BiPAP
-
Abnormal chest x-ray: Left shift of the mediastinum to the left. This is also contributing to hypoxemia as well as his morbid obesity.
Suspect left lower lobe abnormality more consistent with atelectasis.
Significant left hemidiaphragm elevation.
I doubt this is a new finding.
For now will encourage incentive spirometry
Avoid sedatives
Prior x-rays will be helpful to compare.
Afebrile/leukocytosis improving. No indication for antibiotics.
Will repeat chest x-ray 10/15
-
Thromboembolic disease also in the differential diagnosis.
Patient already on anticoagulation.
Unlikely to size changer at this point.
Follow echocardiogram, pending
Lower extremity Dopplers negative. Limited study.
-
DVT prophylaxis will be on chronic anticoagulation for atrial fibrillation
Subjective Data
-
Date of Service:
Date of Service: October 15, 2023
Chief Complaint: Pulmonary Follow Up (Acute on chronic hypercapnic respiratory failure/rapid atrial fibrillation)
Subjective:
Patient is feeling better. Lying flat, on nasal cannula. Tolerating BiPAP overnight. Denies chest pain, chest tightness, cough, nausea, abdominal pain.
Objective Data
Data Reviewed
Vital Signs / I&O / Oxygen:
Vital Signs
Temp Pulse Resp BP Pulse Ox
97.6 F 85 15 101/69 96
10/15/23 03:34 10/15/23 05:00 10/15/23 05:00 10/15/23 04:00 10/15/23 05:00
Intake and Output
10/13/23 10/14/23 10/15/23
06:59 06:59 06:59
Intake Total 1295 / 1295 1280 / 1280
Output Total 850 / 850 350 / 350
Balance 445 / 445 930 / 930
SaO2 96
Nasal Cannula flow liters per 8
minute
Physical Exam
General: Comfortable and Other (Large neck)
HEENT: Normocephalic (n) and Anicteric
Cardiovascular: S1-S2, Irregular Rhythm, Murmur (n), Rub (n) and Peripheral Edema (1+, right greater than left)
Respiratory: Clear, Wheeze (n), Crackles (n), Rhonchi (n), Non-Labored Respirations and Other (Decreased at base)
GI: Distended (Morbidly obese), Non Tender and Normal Bowel Sounds
Neurology: Awake, Alert and No Motor Deficits (Moves all extremities, generally weak)
Skin: Cyanosis (n), Jaundice (n) and Rash (n)
Labs/Micro/Reports
Lab Data
10/15/23 04:32
Laboratory Results
10/14/23 10/15/23
15:36 05:36
APTT > 200 H*
pH 7.42
pCO2 59 H
pO2 62 L
HCO3 38.3 H
O2 Delivery Level
Microbiology
10/12/23 23:11 Nasal Swab Influenza Types A & B (GA) - Final
Negative for Influenza A & B, NAAT
Negative results must be combined with clinical observations
and patient history.
Nucleic Acid Amplification test (NAAT)performed on the
[employer] platform.
[2023-10-15] MEDS: CARDIZEM 60 MG PO ×5 (07:29→20:39)
[2023-10-15 07:35] LABS: Glucose - Point of Care 88 mg/dl (70-99)
[2023-10-15 07:48] LABS: Blood Urea Nitrogen 24 mg/dl (9-20); Calcium 8.3 mg/dl (8.4-10.2); Carbon Dioxide 32 mmol/L (22-30); Chloride 95 mmol/L (98-107); Estimated Creatinine Clearance > 125 ml/min; Glucose 95 mg/dl (70-99); Magnesium 1.7 mg/dl (1.6-2.3); Potassium 4.2 mmol/L (3.5-5.1); Sodium 131 mmol/L (135-145); eGFR > 60.00
--- NOTE | 2023-10-15 07:58 | W.PN.HOSP.TC ---
Today's Communication/Plan
-
continue iv diuresis
f/u TTE report
Assessment / Plan
Assessment / Plan
#Acute on chronic hypoxemic respiratory failure
#Dyspnea
� Most likely has underlying CANDY/OHS due to obesity
� Acute symptoms/hypoxia most likely secondary to atrial fibrillation and volume overload
� continue night time BiPAP use. nocturnal o2 testing on bipap tonight.
- ABG showing pco2 down to 59. ph 7.42
� Avoid sedatives, benzodiazepines
� Thromboembolism also on dx although less likely as already have other likely source, and alert already on heparin drip which would not change plan even if PE study is positive; DVT study negative
- Cotninue IV lasix, still have LE swelling, f/u TTE report.
#Atrial fibrillation with RVR
� Heparin drip has been switched to eliquis
� IV cardizem drip - transitioned to oral cardizem
� Follow cardiology recommendations
#Possible decompensated heart failure, unknown type
� May also be exacerbated by acute arrhythmia
� Follow-up echo
� Continue IV Lasix
#Most likely underlying CANDY/OHS
� Follow-up pulmonary outpatient
� Continue night time bipap use
#Hypertension
#Hyperlipidemia
� Continue medications
#DM
-cont AISS, Trulicity
#Morbid Obesity
-weight loss
F/u bariatrics outpatient
#Bed bound
DVT ppx - eliquis
Anticipated Discharge: 24 - 48 hours
Subjective/Interval History
-
Date of Service: October 15, 2023
patient somnolent, waking up on verbal cue
denies of having any excessive sob/chest pain/dizziness overnight
compliant with bipap uses in hospital
HR controlled
Objective Data
-
Labs:
Laboratory Results
10/15/23 10/15/23 10/15/23
04:32 05:36 06:42
WBC 9.6
Hgb 15.0
Hct 47.3
Plt Count 156
HCO3 38.3 H
Sodium Cancelled 131 L
Potassium Cancelled 4.2
Chloride Cancelled 95 L
Carbon Dioxide Cancelled 32 H
BUN Cancelled 24 H
Creatinine Cancelled 0.7
Glucose Cancelled 95
Calcium Cancelled 8.3 L
Vital Signs:
Vital Signs
Temp Pulse Resp BP Pulse Ox
98.0 F 87 14 145/91 91
10/15/23 07:20 10/15/23 07:30 10/15/23 07:30 10/15/23 07:30 10/15/23 07:30
I&O
10/14/23 10/15/23 10/16/23
06:59 06:59 06:59
Intake Total 1295 / 1295 1280 / 1280
Output Total 850 / 850 350 / 350
Balance 445 / 445 930 / 930
Review of Systems
-
Respiratory: Reports No Symptoms
Cardiac: Reports No Symptoms
Abdomen/GI: Reports No Symptoms
Physical Exam
-
General: Comfortable and Morbidly Obese; Negative Respiratory Distress
HEENT: Oxygen
Respiratory: Negative Clear to Auscultation or Wheezes
Cardiac: S1/S2 and Irregular Rhythm; Negative Murmur
GI: Soft, Nontender and Nondistended
Musculoskeletal: Edema, Right Lower Extrem and Edema, Left Lower Extrem
Neuro: Awake, Oriented and No Motor Deficits
Psych: Calm
[2023-10-15] MEDS: CELEXA 10 MG PO (08:14)
[2023-10-15] MEDS: ELIQUIS 5 MG PO ×2 (08:14→20:39)
[2023-10-15] MEDS: BUSPAR 10 MG PO (08:14)
[2023-10-15] MEDS: DESENEX/MITRAZOL/ZEASORB 1 APPLIC TOPICAL ×2 (08:15→20:40)
--- NOTE | 2023-10-15 09:40 | W.PN.CD ---
Addendum entered and electronically signed by Beka Chin MD 10/15/23 14:14:
Appreciate case management information that I summarized below:
- Kenneth 10 md daily- needs prior authorization
- Jardiance 10 mg Daily - covered 100%, no copay
- Entresto 49/51 BID - covered 100% no copay
Original Note:
Today's Communication / Plan
-
Add SGLT inhibitor
PO diuretic
Echo
Continue rate control meds
55 min spent caring for pt today. Reviewed most of the notes and tracings and images and tele, saw/examined pt, prepared this document
Impression / Plan
-
AFib, ? new, duration unknown
- Fist admit here
- Rapid rates
- [id number] (HF, HTN, DM, age1)
- His bed bound status and BMI of 54 make him a very poor candidate for a rhythm control strategy
Suspected acute HF
- May be tachy related
- Diuresis
- Certainly can consider adding SGLT inhibitor given his DM in addition to rate control/diuresis
- Will see what echo shows
- Rate control
- His bed bound status and BMI of 54 make him a very poor candidate for an evaluation of ischemia, prefer med rx
Abnormal CXR
- Very abnormal
- Markedly elevated left hemidiaphragm
Dyspnea/hypoxia:
- Multifactorial but fast afib adding
- Pulmonary notes:
- Likely patient has obstructive sleep apnea or obesity hypoventilation syndrome.
- Has chronic metabolic alkalosis suggestive of chronic hypercapnic respiratory failure
- Left shift of the mediastinum to the left.� This is also contributing to hypoxemia as well as his morbid obesity.
- Suspect left lower lobe abnormality more consistent with atelectasis.
- Significant left hemidiaphragm elevation.
HTN
Hyperlipidemia
DM, type II
Morbid obesity, BMI 54 affecting all aspects of care
Bedbound for 15 yrs
Subjective:
Offers no complaints
Physical Exam
Vital Signs/Labs
Vital Signs
Temp Pulse Resp BP Pulse Ox
98.0 F 80 11 142/90 92
10/15/23 07:20 10/15/23 08:14 10/15/23 08:00 10/15/23 08:14 10/15/23 08:00
10/14/23 10/15/23 10/16/23
06:59 06:59 06:59
Actual Weight 186.1 kg 192.437 kg
10/15/23 04:32
10/15/23 06:42
APTT > 200 Sec (23.4-35.0) H* 10/14/23 15:36
Magnesium 1.7 mg/dl (1.6-2.3) 10/15/23 06:42
Triglycerides 141 mg/dl (10-149) 10/13/23 05:52
LDL Cholesterol, Calc 75 mg/dl 10/13/23 05:52
VLDL Cholesterol, Calc 28 mg/dl (0-30) 10/13/23 05:52
HDL Cholesterol 34 mg/dl 10/13/23 05:52
10/12/23 10/12/23 10/12/23
20:49 21:12 21:29
Hem-B-Bnbjynhsuvq Pept Cancelled Cancelled 1659
LAB Results
10/12/23 10/12/23 10/12/23
20:49 21:12 21:29
Troponin I Cancelled Cancelled < 0.012
Physical Exam
Constitutional: No acute distress
EENT: Anicteric
Cardiovascular: Pedal edema present and Rub absent
Respiratory: Respiratory effort normal and Lungs clear to auscul. (decreased throughout)
GI: Soft
Neuro/Psych: Alert
Data Reviewed
-
Date of Service: October 15, 2023
[2023-10-15] MEDS: LASIX 40 MG PO (10:24)
--- NOTE | 2023-10-15 11:17 | CM ---
CM following re: discharge planning.
Reviewed pt's chart, met with pt.
CM consult regarding pt needs Bi-pap vs nocturnal oxygen.
For nocturnal oxygen pt will need overnight oximetry study dome.
Medicare Documentation requirements for ordering NIV provided to MD.
D/C plan: home with necessary DME.
CM will follow with discharge plan updates as hospitalization progresses
[2023-10-15 11:42] LABS: Glucose - Point of Care 107 mg/dl (70-99)
--- NOTE | 2023-10-15 14:14 | W.PN.CD ---
Today's Communication / Plan
-
For HFpEF
- Jardiance 10 mg a day
- Aldactone 25 mg a day
- Furosemide 40 mg a day
- Will need BMP q 2 weeks x3 and then q3 months => results will need to go to his PCP as he will not be able to make it to office visits to see cardiology
- Move ERIK-i to ARNI can be considered in outpatient setting or if here for longer can do here (to minimize number of med changes)
For his AFib
- Eliquis 5 BID
- Dilt ER 180 mg a day
- suggest periodic CBCs to assure no occult bleeding => results to PCP as he will not be able to come to office visits to see cardiology
At this time no plans for ischemic evaluation or plans to pursue a rhythm control approach
Impression / Plan
-
AFib, ? new, duration unknown
- Fist admit here
- Rapid rates => now well controlled, perhaps dilt 60 q6 is a bit too much => will go to Dilt ER 180 mg a day
- [id number] 4 (HF, HTN, DM, age1)
- His bed bound status and BMI of 54=> 53 make him a very poor candidate for a rhythm control strategy
Suspected acute HF => echo here on 10/15/2023 was unremarkable (but TDS) and so HFpEF w/o signif valve disease
- May be tachy related. May not have much
- Diuresis, SGLT inhibitor, add MRA (aldactone)
- Move ERIK-i to ARNI can be considered in outpatient setting or if here for longer can do here (to minimize number of med changes)
- Certainly can consider adding SGLT inhibitor given his DM in addition to rate control/diuresis
- Rate control
- His bed bound status and BMI of 54 make him a very poor candidate for an evaluation of ischemia, prefer med rx
Abnormal CXR
- Very abnormal
- Markedly elevated left hemidiaphragm
Dyspnea/hypoxia:
- Multifactorial but fast afib adding
- Pulmonary notes:
- Likely patient has obstructive sleep apnea or obesity hypoventilation syndrome.
- Has chronic metabolic alkalosis suggestive of chronic hypercapnic respiratory failure
- Left shift of the mediastinum to the left.� This is also contributing to hypoxemia as well as his morbid obesity.
- Suspect left lower lobe abnormality more consistent with atelectasis.
- Significant left hemidiaphragm elevation.
HTN
Hyperlipidemia
DM, type II
Morbid obesity, BMI 54 affecting all aspects of care
Bedbound for 15 yrs
Subjective:
Offers no complaints
Physical Exam
Vital Signs/Labs
Vital Signs
Temp Pulse Resp BP Pulse Ox
97.8 F 70 15 108/72 95
10/15/23 11:00 10/15/23 12:39 10/15/23 12:00 10/15/23 12:39 10/15/23 12:00
10/14/23 10/15/23 10/16/23
06:59 06:59 06:59
Actual Weight 186.1 kg 192.437 kg
10/15/23 04:32
10/15/23 06:42
APTT > 200 Sec (23.4-35.0) H* 10/14/23 15:36
Magnesium 1.7 mg/dl (1.6-2.3) 10/15/23 06:42
Triglycerides 141 mg/dl (10-149) 10/13/23 05:52
LDL Cholesterol, Calc 75 mg/dl 10/13/23 05:52
VLDL Cholesterol, Calc 28 mg/dl (0-30) 10/13/23 05:52
HDL Cholesterol 34 mg/dl 10/13/23 05:52
10/12/23 10/12/23 10/12/23
20:49 21:12 21:29
Inr-P-Syangiwczyo Pept Cancelled Cancelled 1660
LAB Results
10/12/23 10/12/23 10/12/23
20:49 21:12 21:29
Troponin I Cancelled Cancelled < 0.012
Physical Exam
Constitutional: No acute distress
Cardiovascular: Pedal edema present (trace), S1S2 is normal and Murmur/rub/gallop absent
Respiratory: Crackles Absent
GI: Soft
Neuro/Psych: Alert
Data Reviewed
-
Date of Service: October 15, 2023
--- NOTE | 2023-10-15 15:51 | WOUNDNOTE ---
TRELL RN NOTE: Confirmed with nurse Chaidez that patient is currently on a bariatric bed and skin with mild MASD, can cancel consult.
[2023-10-15 16:57] LABS: Glucose - Point of Care 104 mg/dl (70-99)
--- NOTE | 2023-10-15 17:05 | PTCARENOTE ---
Pt refuses turns because he is comfortable. Pt has been bed bound for 15 years and has not sit up in a chair for a few years. Pt can only have Hob 25 degrees as he has too much pain when he sits up.
[2023-10-15] MEDS: LIPITOR 10 MG PO (20:40)
[2023-10-15] MEDS: XANAX 1 MG PO (21:49)
[2023-10-15 22:01] LABS: Glucose - Point of Care 114 mg/dl (70-99)
[2023-10-16] VITALS (13 sets, daily range): BP systolic 121–152; BP diastolic 75–107; PULSE 2–88; BMI 53.1
[2023-10-16 06:12] LABS: Hemoglobin 14.1 g/dL (13.0-18.0); Mean Corp Hgb Conc. 31.3 g/dL (33.0-37.0); Mean Corpuscular Hgb 28.2 pg (27.0-31.0); Mean Platelet Volume 10.9 fL (7.4-10.4); Platelet Count 152 10^3/uL (130-400); Red Cell Dist. Width 14.2 % (11.5-14.5)
[2023-10-16 06:24] LABS: Blood Urea Nitrogen 21 mg/dl (9-20); Carbon Dioxide 34 mmol/L (22-30); Chloride 97 mmol/L (98-107); Estimated Creatinine Clearance > 125 ml/min; Glucose 99 mg/dl (70-99); Potassium 3.7 mmol/L (3.5-5.1); Sodium 133 mmol/L (135-145); eGFR > 60.00
--- NOTE | 2023-10-16 07:05 | W.PN.PUL3 ---
Today's Communication / Plan
-
Obtain noct oximetry tonight on BIPAP (no oxygen)
Transitioned to Eliquis
Pt not able to follow up. Unfortunately will be dependent on primary
Assessment
-
Acute hypoxemic respiratory insufficiency currently on 8L NC, pulse ox 95% (usually not on supplemental oxygen)
Dyspnea
proBNP 1760/negative troponins
Negative COVID
Chest x-ray reviewed: Marked left hemidiaphragm elevation on the left hemithorax with volume loss. Moderate left basilar atelectasis/cannot rule out pneumonia.
Atrial fibrillation with rapid ventricular response-heart rate in the 120s-130s
Suspect component of heart failure acute-unknown type
Conditions present prior admission:
Hypertension
Hypercholesterolemia
Type 2 diabetes
Morbid obesity
Bedbound status for the last 15 years
Chronic arthritis
Assessment and plan:
At this time, patient appears to be comfortable, tolerating BiPAP 18/8, 6 L
est Vt 450
negative fluid balance noted
Chest exam is clear, decreased
ABG 7.42/59/62
EF 55%, nl RV size and fxn
Moving forward
Continue IV diuresis, negative fluid balance noted
Heart rate better controlled, weight down 5kg
Dilt changed to oral
Heparin changed to Eliquis
wean off oxygen. Maintain pulse ox above 90%. Improved oxygenation.
96% on 4L noted during the day
ABG reviewed
Likely patient has obstructive sleep apnea or obesity hypoventilation syndrome.
He is bedbound, likely unable to follow-up
He is also not an appropriate rhythm control pt per cards
Avoid sedatives
BiPAP started to be used intermittently and at bedtime. This will continue
Likely will need noninvasive mechanical ventilation, the complicating factor is that this patient cannot follow-up, he is bedbound due to his morbid obesity.
He only has been followed by his primary care doctor who comes to his house.
Unclear if these physician has expertise for BiPAP follow-up.
will obtain nocturnal oximetry based on CM recs tonight on BIPAP and on RA
May consider oxygen therapy at the least as patient has hypoxia despite being on BiPAP
Abnormal chest x-ray: Left shift of the mediastinum to the left. This is also contributing to hypoxemia as well as his morbid obesity.
Suspect left lower lobe abnormality more consistent with atelectasis.
Significant left hemidiaphragm elevation.
I doubt this is a new finding.
For now will encourage incentive spirometry
Avoid sedatives
Prior x-rays will be helpful to compare.
Afebrile/leukocytosis improving. No indication for antibiotics.
Will repeat chest x-ray 10/15, pending
Thromboembolic disease also in the differential diagnosis.
Patient already on anticoagulation, now switched to Eliquis
Unlikely to manager exchange at this point.
Lower extremity Dopplers negative. Limited study.
DVT prophylaxis will be on chronic anticoagulation for atrial fibrillation
Dispo
Subjective Data
-
Date of Service:
Date of Service: October 16, 2023
Chief Complaint: Pulmonary Follow Up (Acute on chronic hypercapnic respiratory failure/rapid atrial fibrillation)
Subjective:
sleeping with bipap on
Objective Data
Data Reviewed
Vital Signs / I&O / Oxygen:
Vital Signs
Temp Pulse Resp BP Pulse Ox
97.6 F 70 11 132/100 95
10/16/23 03:57 10/16/23 06:00 10/16/23 06:00 10/16/23 06:00 10/16/23 06:00
Intake and Output
10/15/23 10/16/23 10/17/23
06:59 06:59 06:59
Intake Total 1280 / 1280 240 / 240
Output Total 350 / 350 2500 / 2500
Balance 930 / 930 -2260 / -2260
SaO2 95
Nasal Cannula flow liters per 4
minute
Physical Exam
General: Comfortable and Other (Large neck)
HEENT: Normocephalic (n)
Cardiovascular: S1-S2, Irregular Rhythm, Murmur (n), Rub (n) and Peripheral Edema (1+, right greater than left)
Respiratory: Clear, Wheeze (n), Crackles (n), Rhonchi (n) and Non-Labored Respirations
GI: Distended (Morbidly obese)
Neurology: Lethargic (sleeping on bipap)
Skin: Warm and Good Color
Labs/Micro/Reports
Lab Data
10/16/23 05:33
10/16/23 05:33
[2023-10-16] MEDS: JARDIANCE 10 MG PO (09:07)
[2023-10-16] MEDS: ALDACTONE 25 MG PO (09:07)
[2023-10-16] MEDS: LASIX 40 MG PO (09:07)
[2023-10-16] MEDS: CELEXA 10 MG PO (09:07)
[2023-10-16] MEDS: BUSPAR 10 MG PO (09:08)
[2023-10-16] MEDS: ELIQUIS 5 MG PO ×2 (09:08→21:10)
[2023-10-16] MEDS: DESENEX/MITRAZOL/ZEASORB 1 APPLIC TOPICAL ×2 (09:08→21:11)
[2023-10-16] MEDS: CARDIZEM 60 MG PO ×4 (09:08→21:10)
[2023-10-16 10:40] LABS: Glucose - Point of Care 90 mg/dl (70-99)
--- NOTE | 2023-10-16 12:06 | PTCARENOTE ---
Patient AAOx3, forgetful at times. Tolerated bipap overnight, currently on 4L NC sats 94%. Patient states that 'sleeping med really worked.' VSS. Afib on monitor. Discussed with xray that patient unable to sit upright and therefore xray ordered
unable to be performed. Downgraded to telemetry. Patient making needs known. Continuing to monitor patient.
[2023-10-16 13:55] LABS: Glucose - Point of Care 108 mg/dl (70-99)
--- NOTE | 2023-10-16 16:13 | W.PN.HOSP.TC ---
Today's Communication/Plan
-
continue diuresis
f/u weight/cr
continue night time BiPAP
Transfer tele
Assessment / Plan
Assessment / Plan
#Acute on chronic hypoxemic respiratory failure
#Dyspnea
� Most likely has underlying CANDY/OHS due to obesity
� Acute symptoms/hypoxia most likely secondary to atrial fibrillation and volume overload
� continue night time BiPAP use. nocturnal o2 testing on bipap tonight.
- ABG showing pco2 down to 59. ph 7.42
� Avoid sedatives, benzodiazepines
- TTE showing preserved EF
� Thromboembolism also on dx although less likely as already have other likely source, and alert already on heparin drip which would not change plan even if PE study is positive; DVT study negative
- Continue on PO diuretics.
#Atrial fibrillation with RVR
� Heparin drip has been switched to eliquis
� IV cardizem drip - transitioned to oral cardizem
� Follow cardiology recommendations
#Possible decompensated heart failure, unknown type
� May also be exacerbated by acute arrhythmia
� TTE showing preserved EF
� Continue on PO diuretics
#Most likely underlying CANDY/OHS
� Follow-up pulmonary outpatient
� Continue night time bipap use
#Essential Hypertension
#Hyperlipidemia
� Continue medications
#DM
-cont AISS, Trulicity
#Morbid Obesity
-weight loss
F/u bariatrics outpatient
#Bed bound
DVT ppx - eliquis
Anticipated Discharge: 24 - 48 hours
Subjective/Interval History
-
Date of Service: October 16, 2023
no issues overnight
remains compliant with bipap use
HR controlled
Objective Data
-
Labs:
Laboratory Results
10/16/23
05:33
WBC 9.0
Hgb 14.1
Hct 45.0
Plt Count 152
Sodium 133 L
Potassium 3.7
Chloride 97 L
Carbon Dioxide 34 H
BUN 21 H
Creatinine 0.6 L
Glucose 99
Calcium 8.0 L
Vital Signs:
Vital Signs
Temp Pulse Resp BP Pulse Ox
98.1 F 67 18 135/107 95
10/16/23 15:12 10/16/23 14:10 10/16/23 14:10 10/16/23 14:10 10/16/23 14:10
I&O
10/15/23 10/16/23 10/17/23
06:59 06:59 06:59
Intake Total 1280 / 1280 240 / 240
Output Total 350 / 350 2500 / 2500
Balance 930 / 930 -2260 / -2260
Review of Systems
-
Respiratory: Reports No Symptoms
Cardiac: Reports No Symptoms
Abdomen/GI: Reports No Symptoms
Physical Exam
-
General: Comfortable and Morbidly Obese; Negative Respiratory Distress
HEENT: Oxygen
Respiratory: Wheezes; Negative Clear to Auscultation
Cardiac: S1/S2 and Irregular Rhythm; Negative Murmur
GI: Soft, Nontender and Nondistended
Musculoskeletal: Edema, Right Lower Extrem and Edema, Left Lower Extrem
Neuro: Awake, Oriented and No Motor Deficits
Psych: Calm
[2023-10-16 18:23] LABS: Glucose - Point of Care 108 mg/dl (70-99)
[2023-10-16] MEDS: XANAX 1 MG PO (21:10)
[2023-10-16] MEDS: LIPITOR 10 MG PO (21:10)
[2023-10-16 21:34] LABS: Glucose - Point of Care 115 mg/dl (70-99)
--- NOTE | 2023-10-16 22:00 | RESPNOTE ---
PT was placed on a nocturnal study as ordered per Dr. Uribe and PT is tolerating well. PT was placed on the BIPAP as ordered for HS use and o2 was disconnected and BIPAP is on the PT with Room Air. Currently HR-84/ SPO2-89%. Will continue to
monitor and obtain nocturnal study.
--- NOTE | 2023-10-16 23:35 | PTCARENOTE ---
Caring for pt overnight. aaox3, very pleasant. Denies pain && sob. afib on monitor. remains on 4LMF 95%. Nocturnal sleep study ordered for tonight with bipap and no o2. pt educated on this & RT in room to explain more in depth. Took pills whole with
water, no issues. Remained in bed. Has refused any turns so far. vss. Once placed on bipap nocturnal sleep study pt desating to 76%-85%. NO other issues at this time, call ward in reach. Will monitor.
[2023-10-17] VITALS (14 sets, daily range): BP systolic 112–154; BP diastolic 76–99; PULSE 2–94; BMI 52.2
--- NOTE | 2023-10-17 03:32 | RESPNOTE ---
PT remains on the Nocturnal Pulse Oximetry study as ordered. PT has had steady desaturations into the 60's. The study is being done on room air as ordered with the BIPAP and supplemental o2 was added at this time. PT required 6L of supplemental
o2 running through his BIPAP in order to maintain adequate o2 saturations. PT is currently HR-90/Spo2-92%. PT is on BIPAP 16/03 with 6L. Will document in his study.
[2023-10-17 05:08] LABS: Hematocrit 47.4 % (39.0-52.0); Hemoglobin 14.8 g/dL (13.0-18.0); Mean Corp Hgb Conc. 31.2 g/dL (33.0-37.0); Mean Corpuscular Hgb 28.1 pg (27.0-31.0); Mean Corpuscular Volume 89.9 fL (80.0-94.0); Mean Platelet Volume 10.4 fL (7.4-10.4); Platelet Count 143 10^3/uL (130-400); Red Blood Cell Count 5.27 10^6/uL (4.70-6.10); Red Cell Dist. Width 14.1 % (11.5-14.5); White Blood Cell Count 8.1 10^3/uL (4.8-10.8)
[2023-10-17 05:38] LABS: Blood Urea Nitrogen 24 mg/dl (9-20); Calcium 9.1 mg/dl (8.4-10.2); Carbon Dioxide 35 mmol/L (22-30); Chloride 92 mmol/L (98-107); Estimated Creatinine Clearance > 125 ml/min; Glucose 110 mg/dl (70-99); Sodium 134 mmol/L (135-145); eGFR > 60.00
--- NOTE | 2023-10-17 06:53 | W.PN.PUL3 ---
Addendum entered and electronically signed by Judy Rivera MD 10/17/23 09:53:
I did reach out to patient's primary physician Dr. Jonny Brice ([phone])
Left message, specifically asking whether he is comfortable managing BiPAP and oxygen as patient requires home visits by his primary
Await callback
Original Note:
Today's Communication / Plan
-
Plan to confirm set up BiPAP 18/8, 6 L at night at home
Need to confirm whether primary physician can manage this
Patient will not be able to follow-up in our office
Unable to get chest x-ray, patient unable to sit upright due to back pain
Assessment
-
Acute hypoxemic respiratory insufficiency currently on 8L NC, pulse ox 95% (usually not on supplemental oxygen)
Dyspnea
proBNP 1760/negative troponins
Negative COVID
Chest x-ray reviewed: Marked left hemidiaphragm elevation on the left hemithorax with volume loss. Moderate left basilar atelectasis/cannot rule out pneumonia.
Atrial fibrillation with rapid ventricular response-heart rate in the 120s-130s
Suspect component of heart failure acute-unknown type
Conditions present prior admission:
Hypertension
Hypercholesterolemia
Type 2 diabetes
Morbid obesity
Bedbound status for the last 15 years
Chronic arthritis
Assessment and plan:
At this time, patient appears to be comfortable, tolerating BiPAP 18/8, Yesterday p.m., required additional 6 L at 2:00AM due to severe hypoxia. With addition of 6 L, hypoxia resolved with BiPAP
Consistent with severe apnea, obesity hypoventilation
negative fluid balance noted
Chest exam is clear, decreased, no crackles
ABG 7.42/59/62
EF 55%, nl RV size and fxn
Unable to get upright film, patient unable to sit up due to back pain
Moving forward
Continue IV diuresis, negative fluid balance noted
Heart rate better controlled, weight down 10kg since admission
Dilt changed to oral
Heparin changed to Eliquis
wean off oxygen. Maintain pulse ox above 90%. Improved oxygenation.
96% on 4L noted during the day
ABG reviewed
Likely patient has obstructive sleep apnea or obesity hypoventilation syndrome.
He is bedbound, likely unable to follow-up
He is also not an appropriate rhythm control pt per cards
He will require noninvasive mechanical ventilation with oxygen based on nocturnal oximetry and ABG analysis
He only has been followed by his primary care doctor who comes to his house.
Unclear if these physician has expertise for BiPAP follow-up.
Patient requires nocturnal BiPAP due to obesity hypoventilation syndrome with oxygen due to severe hypoxia.
With BiPAP settings 18/8, 6 L, nocturnal oximetry has normalized.
pCO2 has improved from 78 to 59
Abnormal chest x-ray: Left shift of the mediastinum to the left. This is also contributing to hypoxemia as well as his morbid obesity.
Suspect left lower lobe abnormality more consistent with atelectasis.
Significant left hemidiaphragm elevation.
I doubt this is a new finding.
For now will encourage incentive spirometry
Avoid sedatives
Prior x-rays will be helpful to compare.
Afebrile/leukocytosis improving. No indication for antibiotics.
Unable to repeat upright films due to severe back pain
Thromboembolic disease also in the differential diagnosis.
Patient already on anticoagulation, now switched to Eliquis
Unlikely to exchange mechanic at this point.
Lower extremity Dopplers negative. Limited study.
DVT prophylaxis will be on chronic anticoagulation for atrial fibrillation
Disposition efforts
We will touch base with case management regarding home set up of BiPAP with 6 L
Will also need to confirm whether primary physician can manage. Patient will not be able to follow-up in our office to help manage the BiPAP
Reviewed with patient at length
Subjective Data
-
Date of Service:
Date of Service: October 17, 2023
Chief Complaint: Pulmonary Follow Up (Acute on chronic hypercapnic respiratory failure/rapid atrial fibrillation)
Subjective:
Patient is feeling well. Denies chest pain, nausea, abdominal pain. Tolerating BiPAP overnight. Denies palpitations. Conversant, lying flat
Objective Data
Data Reviewed
Vital Signs / I&O / Oxygen:
Vital Signs
Temp Pulse Resp BP Pulse Ox
98.8 F 77 23 135/84 91
10/17/23 02:46 10/17/23 06:00 10/17/23 06:00 10/17/23 06:00 10/17/23 06:00
Intake and Output
10/15/23 10/16/23 10/17/23
06:59 06:59 06:59
Intake Total 1280 / 1280 240 / 240
Output Total 350 / 350 2500 / 2500 2750 / 2750
Balance 930 / 930 -2260 / -2260 -2750 / -2750
SaO2 91
Nasal Cannula flow liters per 4
minute
Physical Exam
General: Comfortable and Other (Large neck)
HEENT: Normocephalic (n) and Anicteric
Cardiovascular: S1-S2, Irregular Rhythm, Murmur (n), Rub (n) and Peripheral Edema (1+, right greater than left)
Respiratory: Clear, Wheeze (n), Crackles (n), Rhonchi (n) and Non-Labored Respirations
GI: Soft, Distended (Morbidly obese) and Non Tender
Neurology: Awake, Alert and No Motor Deficits (Generally weak, moves all extremities)
Skin: Warm, Good Color and Jaundice (n)
Labs/Micro/Reports
Lab Data
10/17/23 04:57
10/17/23 04:57
[2023-10-17 07:15] LABS: Glucose - Point of Care 98 mg/dl (70-99)
[2023-10-17] MEDS: BUSPAR 10 MG PO (09:34)
[2023-10-17] MEDS: DESENEX/MITRAZOL/ZEASORB 1 APPLIC TOPICAL ×2 (09:34→20:15)
[2023-10-17] MEDS: ELIQUIS 5 MG PO ×2 (09:34→20:15)
[2023-10-17] MEDS: JARDIANCE 10 MG PO (09:34)
[2023-10-17] MEDS: CELEXA 10 MG PO (09:34)
[2023-10-17] MEDS: CARDIZEM CD 180 MG PO (09:35)
[2023-10-17] MEDS: LASIX 40 MG PO (09:35)
[2023-10-17] MEDS: ALDACTONE 25 MG PO (09:35)
--- NOTE | 2023-10-17 09:36 | W.PN.CD ---
Today's Communication / Plan
-
We will sign off
PCP will need to overtake AFib and HFpEF management
Suggest �BMP q 2 weeks x3 and then q3 months => results will need to go to his PCP, periodic CBC to assure no occult bleeding on Eliquis
If in future more BP control needed he is a good candidate for ARNI or ARB
Impression / Plan
-
AFib, ? new, duration unknown
- Fist admit here
- Rapid rates => now well controlled, perhaps dilt 60 q6 is a bit too much => Now on Dilt ER 180 mg a day
- [id number] 4 (HF, HTN, DM, age1) => tolerating Eliquis (so far)
- His bed bound status (x15 yrs) and BMI of > 50 makes him a very poor candidate for a rhythm control strategy
Suspected acute HF => echo here on 10/15/2023 was unremarkable (but TDS) and so HFpEF w/o signif valve disease
- May be tachy related. May not have much HF, may have been mostly pulmonary or a mixture
- Diuresis, SGLT inhibitor, add MRA (Aldactone)
- Now on Lasix, SGLT-I, Aldactone
- Later can consider adding ARNI (for HF or HTN)
- Rate control
- His bed bound status and BMI > 50 make him a very poor candidate for an evaluation of ischemia, prefer med rx
Abnormal CXR
- Very abnormal
- Markedly elevated left hemidiaphragm
Dyspnea/hypoxia:
- Multifactorial but fast afib/HFpEF adding to complex pulmonary disease
- Pulmonary notes:
- Now on BiPAP 16/03, 6 L at night at home
- Likely patient has obstructive sleep apnea or obesity hypoventilation syndrome.
- Has chronic metabolic alkalosis suggestive of chronic hypercapnic respiratory failure
- Left shift of the mediastinum to the left.� This is also contributing to hypoxemia as well as his morbid obesity.
- Suspect left lower lobe abnormality more consistent with atelectasis.
- Significant left hemidiaphragm elevation.
HTN
- If in future more BP control needed he is a good candidate for ARNI or ARB
Hyperlipidemia
DM, type II
Morbid obesity, BMI 54 affecting all aspects of care
Bedbound for 15 yrs
Subjective:
Offers no complaints
Physical Exam
Vital Signs/Labs
Vital Signs
Temp Pulse Resp BP Pulse Ox
98.1 F 77 23 135/84 91
10/17/23 07:43 10/17/23 06:00 10/17/23 06:00 10/17/23 06:00 10/17/23 06:00
10/16/23 10/17/23 10/18/23
06:59 06:59 06:59
Actual Weight 187.787 kg 184.612 kg
10/17/23 04:57
10/17/23 04:57
APTT > 200 Sec (23.4-35.0) H* 10/14/23 15:36
Magnesium 1.7 mg/dl (1.6-2.3) 10/15/23 06:42
Triglycerides 141 mg/dl (10-149) 10/13/23 05:52
LDL Cholesterol, Calc 75 mg/dl 10/13/23 05:52
VLDL Cholesterol, Calc 28 mg/dl (0-30) 10/13/23 05:52
HDL Cholesterol 34 mg/dl 10/13/23 05:52
10/12/23 10/12/23 10/12/23
20:49 21:12 21:29
Nzg-I-Dabgheothit Pept Cancelled Cancelled 1659
Physical Exam
Constitutional: No acute distress
EENT: Anicteric
Cardiovascular: Pedal edema is absent (1+), Rhythm/rate is irregular and S1S2 is normal
Respiratory: Respiratory effort normal and Lungs clear to auscul. (decreased in general)
GI: Soft
Neuro/Psych: Alert
Data Reviewed
-
Date of Service: October 17, 2023
--- NOTE | 2023-10-17 09:56 | CM ---
Addendum entered by Annie Díaz RN 10/17/23 15:34:
Spoke with Claire, the patient called the [employer] Waiver program and requested increased caregiver hours.
says the DME company that provided the hospital bed/airbed is [employer] and their # is out of service. The foot section of the [employer] Air mattress is deflated and the siderails on the bed are broken. They have paid out of pocket several
times for repairs and cannot afford to keep paying to fix the bed/mattress and therefore want a new bed. Agreed to call a few DME companies in this regard. says his insurance has not changed since he got this bed.
Looked at [employer] air mattress online; the wt limit for their mattress is 350lbs.
Spoke with [facility]; they do not carry bariatric beds.
Spoke with [facility]; they do not take the patient's insurance.
Spoke with [facility]; they do have a bariatric bed in stock and can provide a gel overlay mattress. They will have to check his insurance for coverage. If not covered out of pocket may be > $300/month. His insurance may use the 5 yr
medicare rule for limits on switching out DME. Request faxed for hospital bed.
Request to Dr Richards re; [facility] bed.
[facility] re; coverage for new bariatric bed with gel overlay.
Plan fax BIPAP Form and Pulmonary Notes to [facility] once signed by .
Plan home with BIPAP setup, with [facility], possibly with new bariatric bed, by [facility].
Addendum entered by Annie Díaz RN 10/17/23 11:09:
Message from Dr Rivera, he has connected yet with patient's PCP re; BIPAP follow up. He will document med necessity for BIPAP later and sign the BIPAP Form left on the chart.
Patient and agreed to VN - patient chose [facility]. Referral to [facility].
Plan fax BIPAP Form and Pulmonary Notes to [facility] once signed by .
Plan home with BIPAP setup, with VN, by [facility].
Original Note:
Patient with Hx including morbid obesity and bedbound status, with Dx Acute on chronic hypoxemic respiratory failure. O2 4L midflow. BIPAP HS. Nocturnal Pulse Oximetry study. A/O.
CM Consult: Setup BIPAP 18/8 with 6L at home. Confirm PCP for follow up- not able to follow Dr Rivera office.
Spoke with [facility]; sent initial request for BIPAP to her e-fax [phone] via [employer].
Spoke with Dr Yuniel Moffett, [place] [facility] (ph [phone]); Betina provided Dr Brice cell phone which BALTAZAR provided to Dr Rivera. She does not want his cell phone to be given out to the patient- MD is off this week however taking
phone calls.
Spoke with patient; he agrees to a referral to [facility] for home BIPAP and was informed his PCP will need to follow him for that. Patient saying he would like a new bariatric hospital bed (has had for 4 yrs) however he does not know the name of the
company that provides it. Asked him if his could call the company about it.
Spoke with patient's ; she will call [facility] about the patient's [employer] air bed- the patient has had the bed for 4 years and they have paid the bed off. feels she needs more help at home - advised her to call the [employer]
at [facility] Waiver Program to ask for increased caregiver hours. was hoping patient would have agreed to go to live in a SNF but she has not talked to him about this- she is asking CM to speak with him in this regard---> spoke with patient again,
he is unsure he would want to go to a SNF to live. Explained to both patient and that as patient has been bedbound for 15 years and declines to get OOB with rodolfo lift at home, that it is unlikely insurance with pay for rehab at SNF.
Plan follow up with [facility] to confirm BIPAP in place for d/c home.
Plan home by bariatric ambulance.
[2023-10-17 12:07] LABS: Glucose - Point of Care 107 mg/dl (70-99)
--- NOTE | 2023-10-17 14:30 | W.PN.HOSP.TC ---
Addendum entered and electronically signed by Rigo Richards MD 10/17/23 16:03:
Patient is in need of a semi-electric hospital bed with foam mattress due to the need to facilitate frequent repositioning to prevent decubitus ulcers and pressure points.
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
Original Note:
Today's Communication/Plan
-
discharge planning
Assessment / Plan
Assessment / Plan
#Acute on chronic hypoxemic respiratory failure
#Dyspnea
� Most likely has underlying CANDY/OHS due to obesity
� Acute symptoms/hypoxia most likely secondary to atrial fibrillation and volume overload
� continue night time BiPAP use. nocturnal o2 testing on bipap tonight.
- ABG showing pco2 down to 59. pH 7.42
� Avoid sedatives, benzodiazepines
- TTE showing preserved EF
- Thromboembolism also on dx although less likely as already have other likely source, and alert already on heparin drip which would not change plan even if PE study is positive; DVT study negative
- Continue on PO diuretics.
#Atrial fibrillation with RVR
� Heparin drip has been switched to Eliquis
� IV Cardizem drip - transitioned to oral Cardizem
� Follow cardiology recommendations
#Possible decompensated heart failure, unknown type
� May also be exacerbated by acute arrhythmia
� TTE showing preserved EF
� Continue on PO diuretics
#Most likely underlying CANDY/OHS
� Follow-up pulmonary outpatient
� BiPAP arrangement underway
#Essential Hypertension
#Hyperlipidemia
� Continue medications
#DM
-cont AISS, Trulicity
#Morbid Obesity
-weight loss
F/u bariatrics outpatient
Bed bound
DVT ppx - eliquis
Anticipated Discharge: 24 - 48 hours
Subjective/Interval History
-
Date of Service: October 17, 2023
Resting comfortably in bed rests
No acute issues overnight
Objective Data
-
Labs:
Laboratory Results
10/17/23
04:57
WBC 8.1
Hgb 14.8
Hct 47.4
Plt Count 143
Sodium 134 L
Potassium 4.0
Chloride 92 L
Carbon Dioxide 35 H
BUN 24 H
Creatinine 0.6 L
Glucose 110 H
Calcium 9.1
Vital Signs:
Vital Signs
Temp Pulse Resp BP Pulse Ox
97.8 F 90 15 135/85 96
10/17/23 11:00 10/17/23 12:00 10/17/23 12:00 10/17/23 12:00 10/17/23 12:00
I&O
10/16/23 10/17/23 10/18/23
06:59 06:59 06:59
Intake Total 240 / 240
Output Total 2500 / 2500 2750 / 2750
Balance -2260 / -2260 -2750 / -2750
Review of Systems
-
Respiratory: Reports No Symptoms
Cardiac: Reports No Symptoms
Abdomen/GI: Reports No Symptoms
Physical Exam
-
General: Comfortable and Morbidly Obese; Negative Respiratory Distress
HEENT: Oxygen
Respiratory: Wheezes; Negative Clear to Auscultation
Cardiac: S1/S2 and Irregular Rhythm; Negative Murmur
GI: Soft, Nontender and Nondistended
Musculoskeletal: Edema, Right Lower Extrem and Edema, Left Lower Extrem
Neuro: Awake, Oriented and No Motor Deficits
Psych: Calm
[2023-10-17 17:02] LABS: Glucose - Point of Care 102 mg/dl (70-99)
--- NOTE | 2023-10-17 20:44 | PTCARENOTE ---
Received patient in bed, AAOx3, following commands, denying pain and SOB. Afib, 70s-90s. Hypertensive, 150s/80s. Palpable radial and pedal pulses bilaterally. 96% on 4 liters nasal cannula, lung sounds diminished throughout. Bipap HS. Cholesterol
lowering diet. Purewick to groin, draining yellow urine in canister. Desenex applied in groin and abdomen folds. Patient refused to be turned. PIVs patent, WNL. Call ward within reach, patient resting comfortably.
[2023-10-17] MEDS: LIPITOR 10 MG PO (21:47)
[2023-10-17] MEDS: XANAX 1 MG PO (21:47)
[2023-10-17 22:05] LABS: Glucose - Point of Care 100 mg/dl (70-99)
[2023-10-18] VITALS (9 sets, daily range): BP systolic 136–151; BP diastolic 73–96; PULSE 2–95; BMI 54.4; BMI 52.0
[2023-10-18 04:34] LABS: Hematocrit 46.6 % (39.0-52.0); Hemoglobin 14.7 g/dL (13.0-18.0); Mean Corp Hgb Conc. 31.5 g/dL (33.0-37.0); Mean Corpuscular Hgb 28.3 pg (27.0-31.0); Mean Corpuscular Volume 89.6 fL (80.0-94.0); Mean Platelet Volume 10.8 fL (7.4-10.4); Platelet Count 155 10^3/uL (130-400); Red Cell Dist. Width 13.8 % (11.5-14.5); White Blood Cell Count 8.6 10^3/uL (4.8-10.8)
[2023-10-18 05:00] LABS: Blood Urea Nitrogen 22 mg/dl (9-20); Calcium 8.9 mg/dl (8.4-10.2); Carbon Dioxide 34 mmol/L (22-30); Chloride 94 mmol/L (98-107); Estimated Creatinine Clearance > 125 ml/min; Glucose 101 mg/dl (70-99); Potassium 4.3 mmol/L (3.5-5.1); Sodium 133 mmol/L (135-145); eGFR > 60.00
[2023-10-18 08:08] LABS: Glucose - Point of Care 84 mg/dl (70-99)
--- NOTE | 2023-10-18 08:21 | W.PN.PUL3 ---
Today's Communication / Plan
-
Set up BiPAP 18/8 with 6 L at home with sleep
Please make sure information is sent to primary physician. He will be following up with patient, home visits
Patient unable to leave the house and follow-up in the office
Our information has been left with the primary physician and he will reach out to our office with any needs
We will help in any way we can
Assessment
-
Acute hypoxemic respiratory insufficiency currently on 8L NC, pulse ox 95% (usually not on supplemental oxygen)
Dyspnea
proBNP 1760/negative troponins
Negative COVID
Chest x-ray reviewed: Marked left hemidiaphragm elevation on the left hemithorax with volume loss. Moderate left basilar atelectasis/cannot rule out pneumonia.
Atrial fibrillation with rapid ventricular response-heart rate in the 120s-130s
Suspect component of heart failure acute-unknown type
Conditions present prior admission:
Hypertension
Hypercholesterolemia
Type 2 diabetes
Morbid obesity
Bedbound status for the last 15 years
Chronic arthritis
Assessment and plan:
At this time, patient appears to be comfortable, tolerating BiPAP 18/8, Yesterday p.m., required additional 6 L at 2:00AM due to severe hypoxia. With addition of 6 L, hypoxia resolved with BiPAP
Consistent with severe apnea, obesity hypoventilation
negative fluid balance noted
Chest exam is clear, decreased, no crackles
ABG 7.42/59/62
EF 55%, nl RV size and fxn
Unable to get upright film, patient unable to sit up due to back pain
Moving forward
Continue IV diuresis, negative fluid balance noted
Heart rate better controlled, weight down 10kg since admission
Dilt changed to oral
Heparin changed to Eliquis
wean off oxygen. Maintain pulse ox above 90%. Improved oxygenation.
96% on 4L noted during the day
ABG reviewed
Likely patient has obstructive sleep apnea or obesity hypoventilation syndrome.
Patient requires noninvasive volume ventilation due to OHS, bilevel has been considered and ruled out including bilevel VAPS. Patient requires pressures greater than 30 cmH2O which is not supported by bilevel VAPS due to body habitus. A
traditional ventilator will exceed pressures greater than 30 mm of water with a max pressure of 50 mm of water.
He is bedbound, likely unable to follow-up
He is also not an appropriate rhythm control pt per cards
He only has been followed by his primary care doctor who comes to his house.
I contacted his primary physician, Dr. Jonny Brice ([phone])
He is familiar with dealing with DME companies but they may need help with setting up BiPAP. I discussed with him that we will be setting up upon discharge from the hospital
Please make sure DME company information has been forwarded to the primary physician for him to follow-up
Primary will reach out to our office if patient needs to follow-up with us.
May require telemedicine visit with sleep nurse practitioner/sleep clinic
Plan to set up home BiPAP 18/18 with 6 L, to be used with sleep
pCO2 has improved from 78 to 59
Abnormal chest x-ray: Left shift of the mediastinum to the left. This is also contributing to hypoxemia as well as his morbid obesity.
Suspect left lower lobe abnormality more consistent with atelectasis.
Significant left hemidiaphragm elevation.
I doubt this is a new finding.
For now will encourage incentive spirometry
Avoid sedatives
Prior x-rays will be helpful to compare.
Afebrile/leukocytosis improving. No indication for antibiotics.
Unable to repeat upright films due to severe back pain
Thromboembolic disease also in the differential diagnosis.
Patient already on anticoagulation, now switched to Eliquis
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
Lower extremity Dopplers negative. Limited study.
DVT prophylaxis will be on chronic anticoagulation for atrial fibrillation
Lastly, given multiple comorbidities, bedbound/sedentary, strongly recommend addressing CODE STATUS
This should be addressed through primary physician
Disposition efforts
Reviewed with primary service
Subjective Data
-
Date of Service:
Date of Service: October 18, 2023
Chief Complaint: Pulmonary Follow Up (Acute on chronic hypercapnic respiratory failure/rapid atrial fibrillation)
Subjective:
Patient examined earlier this morning. Sleeping comfortably on nasal BiPAP. Heart rate appears to be controlled
Objective Data
Data Reviewed
Vital Signs / I&O / Oxygen:
Vital Signs
Temp Pulse Resp BP Pulse Ox
98.3 F 94 14 150/96 95
10/18/23 03:52 10/18/23 06:00 10/18/23 06:00 10/18/23 04:00 10/18/23 06:00
Intake and Output
10/17/23 10/18/23 10/19/23
06:59 06:59 06:59
Intake Total 1680 / 1680
Output Total 2750 / 2750 2525 / 2525
Balance -2750 / -2750 -845 / -845
SaO2 95
Nasal Cannula flow liters per 4
minute
Physical Exam
General: Comfortable and Other (Large neck)
HEENT: Normocephalic (Large neck)
Cardiovascular: S1-S2, Irregular Rhythm, Murmur (n), Rub (n) and Peripheral Edema (1+, right greater than left)
Respiratory: Clear, Wheeze (n), Crackles (n), Rhonchi (n), Non-Labored Respirations and Other (Decreased breath sounds throughout)
GI: Soft and Distended (Morbidly obese)
Neurology: Lethargic (Sleeping on BiPAP)
Skin: Warm, Cyanosis (n) and Bruising (n)
Labs/Micro/Reports
Lab Data
10/18/23 04:09
10/18/23 04:09
[2023-10-18] MEDS: CARDIZEM CD 180 MG PO (08:58)
[2023-10-18] MEDS: JARDIANCE 10 MG PO (08:58)
[2023-10-18] MEDS: CELEXA 10 MG PO (08:59)
[2023-10-18] MEDS: DESENEX/MITRAZOL/ZEASORB 1 APPLIC TOPICAL ×2 (08:59→20:00)
[2023-10-18] MEDS: ALDACTONE 25 MG PO (08:59)
[2023-10-18] MEDS: BUSPAR 10 MG PO (08:59)
[2023-10-18] MEDS: ELIQUIS 5 MG PO ×2 (08:59→20:00)
[2023-10-18] MEDS: LASIX 40 MG PO (08:59)
--- NOTE | 2023-10-18 11:34 | PTCARENOTE ---
Plan discussed with attending Dr. Craig, will dc to home when medical devices are in place (bipap and new hospital bed.) Pt updated by .
[2023-10-18 12:22] LABS: Glucose - Point of Care 122 mg/dl (70-99)
--- NOTE | 2023-10-18 12:39 | W.PN.HOSP.TC ---
Addendum entered and electronically signed by Bryon Craig MD 10/18/23 16:01:
mild hyponatremia, will follow
Original Note:
Today's Communication/Plan
-
slow gradual wt loss to continue
Assessment / Plan
Assessment / Plan
#Acute on chronic hypoxemic respiratory failure
#Dyspnea
� Most likely has underlying CANDY/OHS due to obesity
� Acute symptoms/hypoxia most likely secondary to atrial fibrillation and volume overload
� continue night time BiPAP use. nocturnal o2 testing on bipap 18/8 at 6 L
- ABG showing pco2 down to 59. pH 7.42
� Avoid sedatives, benzodiazepines
- TTE showing preserved EF
- Thromboembolism also on dx although less likely as already have other likely source, and alert already on Eliquis which would not change plan even if PE study is positive; DVT study negative
- Continue on PO diuretics.
Wt 194-->183.8kg
#Atrial fibrillation with RVR
� Heparin drip has been switched to Eliquis
� IV Cardizem drip - transitioned to oral Cardizem
� Follow cardiology recommendations
#Possible decompensated heart failure, unknown type
� May also be exacerbated by acute arrhythmia
� TTE showing preserved EF
� Continue on PO diuretics
#Most likely underlying CANDY/OHS
� Follow-up pulmonary outpatient
� BiPAP arrangement underway
#Essential Hypertension
#Hyperlipidemia
� Continue medications
#DM
-cont AISS, Trulicity
#Morbid Obesity
-weight loss
F/u bariatrics outpatient
Bed bound
DVT ppx - eliquis
discussed with nursing, at this point do not know when hospital bed will be available. DC arrangements pending
Anticipated Discharge: 24 - 48 hours
Subjective/Interval History
-
Date of Service: October 18, 2023
Questioning when hospital bed will be obtained
Objective Data
-
Labs:
Laboratory Results
10/18/23
04:09
WBC 8.6
Hgb 14.7
Hct 46.6
Plt Count 155
Sodium 133 L
Potassium 4.3
Chloride 94 L
Carbon Dioxide 34 H
BUN 22 H
Creatinine 0.7
Glucose 101 H
Calcium 8.9
Vital Signs:
Vital Signs
Temp Pulse Resp BP Pulse Ox
98.3 F 90 22 140/73 94
10/18/23 11:48 10/18/23 10:00 10/18/23 10:00 10/18/23 08:58 10/18/23 11:37
I&O
10/17/23 10/18/23 10/19/23
06:59 06:59 06:59
Intake Total 1680 / 1680 840 / 840
Output Total 2750 / 2750 2525 / 2525
Balance -2750 / -2750 -845 / -845 840 / 840
Review of Systems
-
History Source: Patient and Coordinated Provider
Constitutional: Denies Fever
EENT: Reports No Symptoms Reported
Respiratory: Reports No Symptoms
Cardiac: Reports No Symptoms; Denies Chest Pain
Abdomen/GI: Reports No Symptoms
Physical Exam
-
General: Well Developed, Well Nourished, No Apparent Distress, Appears Chronically Ill and Morbidly Obese
HEENT: Normocephalic, Atraumatic and Moist Mucous Membranes
Respiratory: Clear to Auscultation; Negative Wheezes, Rales or Rhonchi
Cardiac: S1/S2 and Irregular Rhythm
GI: Soft, Nontender and Nondistended
Musculoskeletal: No Cyanosis, Edema, Right Lower Extrem and Edema, Left Lower Extrem
Psych: Calm
--- NOTE | 2023-10-18 14:46 | CM ---
Addendum entered by Annie Díaz RN 10/18/23 15:17:
IMM completed.
Original Note:
Patient with Hx including morbid obesity and bedbound status, with Dx Acute on chronic hypoxemic respiratory failure. O2 4L. BIPAP HS.
Non-Invasive Vent/NIV Form faxed to Shon Cordoba with Dr Rivera signature.
Spoke with Shon Cordoba; she has submitted and BiPAP can be delivered to patient's home tomorrow.
She is aware that patient may also need home O2 and that Dr Craig wants to do home O2 assessment tomorrow morning.
Spoke with Jose Angel [facility]; their team checked patient's benefits and stated bariatric bed not able to be approved, without sending the referral/clinical info to the insurance. Asked Jose Angel to please request with insurance and send the clinical
info that CM sent to him. Informed him that PCP Office suggested original bariatric bed may have been under a different insurance. He sent message back that request was re-submitted to insurance today and they have pending auth #/reference #
[id number]. Jose Angel says their team was told that the request could take 3-5 days- asked him to please call insurance again and request expedited auth. Jose Angel looked up which bed patient has currently - it is an [employer]are [id number] which holds patients
with weight up to 750 lbs.
Met with patient and spoke with patient's Claire multiple times today; patient and seem to be anxious and impatient about obtaining insurance approval for hospital bed. apparently called PCP office yesterday and asked them to also
request hospital bed. She also called several DME companies. stated she needed to make multiple requests to multiple people for the bed because she thought obtaining it was 'an emergency' - explained to her that the request is not an
emergency (what was already revealed is that patient/ were aware of their bariatric bed issues for a few years and have not gotten this resolved prior to admission). Explained multiple times to patient and the detailed process of obtaining
new bariatric bed and asked for their continued patience without calling and asking multiple people to order the bed, which will not help. Claire also called patient's insurance and was told by Malinda in auth dept (ph [phone], fax [phone])
that bed would be covered with 20% copay. Explained to patient that the potential new bariatric bed is not an Invacare it is a bariatric bed with a gel mattress.
Spoke with Dr Yuniel Moffett, [place] Office (ph [phone]); she thinks patient may have had a different insurance (a [employer] plan) when his prior hospital bed was ordered. She said she told the she could not order hospital bed
for them.
Plan follow up with [facility] re; coverage for new bariatric bed with gel overlay.
Plan home with BIPAP setup, possibly with new Home O2, possibly with new bariatric bed w gel mattress, with [facility], by [facility].
--- NOTE | 2023-10-18 15:16 | PTCARENOTE ---
Report called to [facility] -will transport patient in bariatric bed at this time.
--- NOTE | 2023-10-18 15:25 | VNURNOTE ---
Home Health Liaison met with patient at 1445 to discuss [facility] nurse visits, schedule and homebound status. Patient is agreeable and understands that visits at home will be 2-3 x per week to assess and teach medical management. Patient is unable to
obtain daily weight due to bedbound status.
[facility] brochure provided with contact information. Patient is aware that [facility] will contact him for start of care in 1-2 days after discharge from .
[facility] referral completed in [facility].
CM has ordered replacement bariatric bed with gel mattress from [employer] and Bipap from [employer].
--- NOTE | 2023-10-18 15:35 | PN.CDI ---
CDI
- -
CDI:
Physician Documentation Request
Admit Date: 10/13/23 01:21
Dear Doctor Kiara,
Patient admitted with acute respiratory failure.
Laboratory Tests
10/15/23 10/16/23 10/17/23 10/18/23
06:42 05:33 04:57 04:09
Sodium 131 L 133 L 134 L 133 L
Based on the above, could you clarify in the progress notes, the appropriate diagnosis, if significant, that supports the above abnormalities and additional evaluation, monitoring and/or treatment rendered:
Hyponatremia
Abnormal lab value insignificant
Other
Use of terms such as suspected, likely, concern for, or probable (associated with a specific diagnosis that is being evaluated, monitored, or treated as if it exists) are acceptable and can be coded in the inpatient setting, when documented at the
time of discharge.
Thank you,
Celeste Delarosa RN, BSN
CDI Specialist
Available via [place] text
Please use your independent medical judgment in providing your response.
[2023-10-18 17:11] LABS: Glucose - Point of Care 98 mg/dl (70-99)
[2023-10-18] MEDS: LIPITOR 10 MG PO (21:41)
[2023-10-18] MEDS: XANAX 1 MG PO (21:41)
[2023-10-18 22:19] LABS: Glucose - Point of Care 108 mg/dl (70-99)
[2023-10-19] VITALS (8 sets, daily range): BP systolic 127–165; BP diastolic 80–100; PULSE 2–90; BMI 52.9
[2023-10-19 06:45] LABS: Blood Urea Nitrogen 24 mg/dl (9-20); Carbon Dioxide 33 mmol/L (22-30); Chloride 91 mmol/L (98-107); Estimated Creatinine Clearance > 125 ml/min; Glucose 98 mg/dl (70-99); Potassium 3.9 mmol/L (3.5-5.1); Sodium 131 mmol/L (135-145); eGFR > 60.00
[2023-10-19 07:42] LABS: Glucose - Point of Care 98 mg/dl (70-99)
[2023-10-19] MEDS: ALDACTONE 25 MG PO (08:50)
[2023-10-19] MEDS: CARDIZEM CD 180 MG PO (08:50)
[2023-10-19] MEDS: CELEXA 10 MG PO (08:50)
[2023-10-19] MEDS: LASIX 40 MG PO (08:50)
[2023-10-19] MEDS: ELIQUIS 5 MG PO ×2 (08:50→21:02)
[2023-10-19] MEDS: BUSPAR 10 MG PO (08:50)
[2023-10-19] MEDS: JARDIANCE 10 MG PO (08:51)
[2023-10-19] MEDS: DESENEX/MITRAZOL/ZEASORB 1 APPLIC TOPICAL ×2 (08:51→21:02)
--- NOTE | 2023-10-19 09:33 | W.PN.PUL3 ---
Today's Communication / Plan
-
Continue BIPAP at night, we reviewed need for outpatient set up
Continue nocturnal and PRN use
Chronically bed bound, ROM in bed
Diuresis per team
Discharge planning per team
Assessment
-
73-year-old man that for the last 15 years has been bedbound due to arthritis and body habitus, first admission to [facility], has been admitted to [facility] in the past.� Morbidly obese, history of hypertension, type 2 diabetes who complains
of progressive shortness of breath for the last week.� Pulse ox was 90% on room air. [place] to be due to untreated CANDY/OHS.
Acute hypoxemic respiratory insufficiency currently on 8L NC, pulse ox 95% (usually not on supplemental oxygen)
Dyspnea
proBNP 1760/negative troponins
Negative COVID
Chest x-ray reviewed: Marked left hemidiaphragm elevation on the left hemithorax with volume loss. Moderate left basilar atelectasis/cannot rule out pneumonia.
Atrial fibrillation with rapid ventricular response-heart rate in the 120s-130s
Suspect component of heart failure acute-unknown type
Conditions present prior admission:
Hypertension
Hypercholesterolemia
Type 2 diabetes
Morbid obesity
Bedbound status for the last 15 years
Chronic arthritis
Assessment and plan:
At this time, patient appears to be comfortable, tolerating BiPAP 18/
He is 91% on RA
Negative fluid balance noted
Chest exam is clear, decreased, no crackles
ABG 7.42/59/62
EF 55%, nl RV size and fxn
Unable to get upright film, patient unable to sit up due to back pain
Continue diuresis, negative fluid balance noted
Heart rate better controlled, weight down 10kg since admission
Dilt changed to oral
Heparin changed to Eliquis
ABG reviewed
Likely patient has obstructive sleep apnea or obesity hypoventilation syndrome.
Patient requires noninvasive volume ventilation due to OHS, bilevel has been considered and ruled out including bilevel VAPS. Patient requires pressures greater than 30 cmH2O which is not supported by bilevel VAPS due to body habitus. A
traditional ventilator will exceed pressures greater than 30 mm of water with a max pressure of 50 mm of water.
He is bedbound, likely unable to follow-up
He is also not an appropriate rhythm control pt per cards
He only has been followed by his primary care doctor who comes to his house.
I contacted his primary physician, Dr. Jonny Brice ([phone])
He is familiar with dealing with DME companies but they may need help with setting up BiPAP. I discussed with him that we will be setting up upon discharge from the hospital
Please make sure DME company information has been forwarded to the primary physician for him to follow-up
Primary will reach out to our office if patient needs to follow-up with us.
May require telemedicine visit with sleep nurse practitioner/sleep clinic
Plan to set up home BiPAP 18/18 with 6 L, to be used with sleep
pCO2 has improved from 78 to 59
Abnormal chest x-ray: Left shift of the mediastinum to the left. This is also contributing to hypoxemia as well as his morbid obesity.
Suspect left lower lobe abnormality more consistent with atelectasis.
Significant left hemidiaphragm elevation.
I doubt this is a new finding.
For now will encourage incentive spirometry
Avoid sedatives
Prior x-rays will be helpful to compare.
Afebrile/leukocytosis improving. No indication for antibiotics.
Unable to repeat upright films due to severe back pain
Thromboembolic disease also in the differential diagnosis.
Patient already on anticoagulation, now switched to Eliquis
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
Lower extremity Dopplers negative. Limited study.
DVT prophylaxis will be on chronic anticoagulation for atrial fibrillation
Lastly, given multiple comorbidities, bedbound/sedentary, strongly recommend addressing CODE STATUS
This should be addressed through primary physician
Disposition efforts
Reviewed with primary service
Subjective Data
-
Date of Service:
Date of Service: October 19, 2023
Chief Complaint: Pulmonary Follow Up (Acute on chronic hypercapnic respiratory failure/rapid atrial fibrillation)
Subjective:
patient seen and examined, stable on room air
no new complaints
off bipap
Objective Data
Data Reviewed
Vital Signs / I&O / Oxygen:
Vital Signs
Temp Pulse Resp BP Pulse Ox
98.0 F 103 16 159/93 91
10/19/23 07:10 10/19/23 08:37 10/19/23 07:10 10/19/23 08:37 10/19/23 08:53
Intake and Output
10/18/23 10/19/23 10/20/23
06:59 06:59 06:59
Intake Total 1680 / 1680 960 / 960
Output Total 2525 / 2525 500 / 500
Balance -845 / -845 460 / 460
SaO2 91
Nasal Cannula flow liters per 4
minute
Physical Exam
General: Comfortable and Other (Large neck, morbidly obese, bedbound)
HEENT: Normocephalic (Large neck), Anicteric and Moist Mucous Membranes
Cardiovascular: S1-S2, Irregular Rhythm, Murmur (n), Rub (n) and Peripheral Edema (1+, right greater than left)
Respiratory: Clear, Wheeze (n), Crackles (n), Rhonchi (n), Non-Labored Respirations and Other (Decreased breath sounds throughout, limited based on BH)
GI: Soft, Distended (Morbidly obese) and Non Tender
Neurology: Awake, Alert, Oriented, AO x 3, No Motor Deficits and Depressed (appearing)
Skin: Warm, Dry, Cyanosis (n) and Bruising (n)
Labs/Micro/Reports
Lab Data
10/18/23 04:09
10/19/23 05:32
[2023-10-19 12:12] LABS: Glucose - Point of Care 144 mg/dl (70-99)
--- NOTE | 2023-10-19 13:21 | W.PN.HOSP.TC ---
Today's Communication/Plan
-
discharge planning
need DME arrangment
Assessment / Plan
Assessment / Plan
#Acute on chronic hypoxemic respiratory failure
#Dyspnea
� Most likely has underlying CANDY/OHS due to obesity
� Acute symptoms/hypoxia most likely secondary to atrial fibrillation and volume overload
� continue night time BiPAP use. nocturnal o2 testing on bipap 18/8 at 6 L
- ABG showing pco2 down to 59. pH 7.42
� Avoid sedatives, benzodiazepines
- TTE showing preserved EF
- Thromboembolism also on dx although less likely as already have other likely source, and alert already on Eliquis which would not change plan even if PE study is positive; DVT study negative
- Continue on PO diuretics.
#Atrial fibrillation with RVR
� Heparin drip has been switched to Eliquis
� IV Cardizem drip - transitioned to oral Cardizem
� Follow cardiology recommendations
#Possible decompensated heart failure, unknown type
� May also be exacerbated by acute arrhythmia
� TTE showing preserved EF
� Continue on PO diuretics
#Most likely underlying CANDY/OHS
� Follow-up pulmonary outpatient
� BiPAP arrangement underway
#Essential Hypertension
#Hyperlipidemia
� Continue medications
#DM
-cont AISS, Trulicity
#Morbid Obesity
-weight loss
F/u bariatrics outpatient
# Hyponatremia
-continue
Bed bound
DVT ppx - eliquis
Anticipated Discharge: Within 24 hours
Subjective/Interval History
-
Date of Service: October 19, 2023
Resting comfortably in bed
No issues overnight
Objective Data
-
Labs:
Laboratory Results
10/19/23
05:32
Sodium 131 L
Potassium 3.9
Chloride 91 L
Carbon Dioxide 33 H
BUN 24 H
Creatinine 0.7
Glucose 98
Calcium 9.0
Vital Signs:
Vital Signs
Temp Pulse Resp BP Pulse Ox
98.3 F 112 16 125/82 94
10/19/23 11:10 10/19/23 11:10 10/19/23 11:10 10/19/23 11:10 10/19/23 11:10
I&O
10/18/23 10/19/23 10/20/23
06:59 06:59 06:59
Intake Total 1680 / 1680 960 / 960
Output Total 2525 / 2525 500 / 500
Balance -845 / -845 460 / 460
Review of Systems
-
Respiratory: Reports No Symptoms
Cardiac: Reports No Symptoms
Abdomen/GI: Reports No Symptoms
Physical Exam
-
General: Comfortable
HEENT: Atraumatic; Negative Oxygen
Respiratory: Clear to Auscultation; Negative Wheezes or Rales
Cardiac: S1/S2 and Irregular Rhythm
GI: Soft, Nontender and Nondistended
Musculoskeletal: No Cyanosis, Edema, Right Lower Extrem and Edema, Left Lower Extrem
Psych: Calm
[2023-10-19] MEDS: MILK OF MAGNESIA 30 ML PO (14:22)
--- NOTE | 2023-10-19 16:19 | CM ---
Met with patient and spoke with . [employer] has received approval for new bariatric bed and air bed mattress. They do not deliver on weekends and need at least one day notice to deliver bariatric beds. Bed will be delivered to home on Sunday
10/22/23. Patient is now off O2 and on RA. Anticipate discharge to home with [facility] services.
[2023-10-19 17:07] LABS: Glucose - Point of Care 130 mg/dl (70-99)
[2023-10-19] MEDS: LIPITOR 10 MG PO (21:02)
[2023-10-19] MEDS: XANAX 1 MG PO (21:03)
[2023-10-20 00:50] LABS: Glucose - Point of Care 109 mg/dl (70-99)
[2023-10-20 05:30] VITALS: BMI 53.2
[2023-10-20 07:25] VITALS: BP 145/90
[2023-10-20 07:37] LABS: Glucose - Point of Care 101 mg/dl (70-99)
--- NOTE | 2023-10-20 08:52 | W.PN.HOSP.TC ---
Today's Communication/Plan
-
discharge Sunday after DME/bed delivered
f/u weight/cr
continue nap time/night use of bipap
Assessment / Plan
Assessment / Plan
#Acute on chronic hypoxemic respiratory failure
#Dyspnea
� Most likely has underlying CANDY/OHS due to obesity
� Acute symptoms/hypoxia most likely secondary to atrial fibrillation and volume overload
� continue night time BiPAP use.
� Avoid sedatives, benzodiazepines
- TTE showing preserved EF
- Thromboembolism also on dx although less likely as already have other likely source, and alert already on Eliquis which would not change plan even if PE study is positive; DVT study negative
- Continue on PO diuretics. weight up to 188kg today, monitor and may need extra dose of lasix tomorrow.
#Atrial fibrillation with RVR
� Heparin drip has been switched to Eliquis
� IV Cardizem drip - transitioned to oral Cardizem
� Follow cardiology recommendations
#Possible decompensated heart failure, unknown type
� May also be exacerbated by acute arrhythmia
� TTE showing preserved EF
� Continue on PO diuretics
#Most likely underlying CANDY/OHS
� Follow-up pulmonary outpatient
� BiPAP arrangement done
#Essential Hypertension
#Hyperlipidemia
� Continue medications
#DM
-cont AISS, Trulicity
#Morbid Obesity
-weight loss
F/u bariatrics outpatient
# Hyponatremia
-continue
Bed bound
DVT ppx - eliquis
Anticipated Discharge: 24 - 48 hours
Subjective/Interval History
-
Date of Service: October 20, 2023
no reported acute issues
Objective Data
-
Labs:
Laboratory Results
10/20/23
07:28
Sodium Pending
Potassium Pending
Chloride Pending
Carbon Dioxide Pending
BUN Pending
Creatinine Pending
Glucose Pending
Calcium Pending
Vital Signs:
Vital Signs
Temp Pulse Resp BP Pulse Ox
97.2 F 93 20 145/90 94
10/20/23 07:25 10/20/23 07:25 10/20/23 07:25 10/20/23 07:25 10/20/23 07:25
I&O
10/19/23 10/20/23 10/21/23
06:59 06:59 06:59
Intake Total 960 / 960 1320 / 1320
Output Total 500 / 500 1600 / 1600
Balance 460 / 460 -280 / -280
Review of Systems
-
Respiratory: Reports No Symptoms
Cardiac: Reports No Symptoms
Abdomen/GI: Reports No Symptoms
Physical Exam
-
General: Comfortable
HEENT: Atraumatic; Negative Oxygen
Respiratory: Clear to Auscultation; Negative Wheezes or Rales
Cardiac: S1/S2 and Irregular Rhythm
GI: Soft, Nontender and Nondistended
Musculoskeletal: No Cyanosis, Edema, Right Lower Extrem and Edema, Left Lower Extrem
Psych: Calm
[2023-10-20] MEDS: CARDIZEM CD 180 MG PO (09:13)
[2023-10-20] MEDS: ELIQUIS 5 MG PO ×2 (09:14→21:09)
[2023-10-20] MEDS: CELEXA 10 MG PO (09:14)
[2023-10-20] MEDS: BUSPAR 10 MG PO (09:14)
[2023-10-20] MEDS: ALDACTONE 25 MG PO (09:14)
[2023-10-20] MEDS: LASIX 40 MG PO (09:14)
[2023-10-20] MEDS: JARDIANCE 10 MG PO (09:14)
[2023-10-20] MEDS: DESENEX/MITRAZOL/ZEASORB 1 APPLIC TOPICAL ×2 (09:19→21:08)
[2023-10-20 09:30] LABS: Blood Urea Nitrogen 25 mg/dl (9-20); Calcium 8.9 mg/dl (8.4-10.2); Carbon Dioxide 30 mmol/L (22-30); Chloride 91 mmol/L (98-107); Estimated Creatinine Clearance > 125 ml/min; Glucose 103 mg/dl (70-99); Sodium 131 mmol/L (135-145); eGFR > 60.00
[2023-10-20 11:00] VITALS: BP 122/77
--- NOTE | 2023-10-20 11:10 | W.PN.PUL.V3 ---
Today's Communication / Plan
-
BiPAP
Arrange oxygen and BiPAP as an outpatient
Diuresis as tolerated
Assessment
-
73-year-old man that for the last 15 years has been bedbound due to arthritis and body habitus, first admission to [facility], has been admitted to [place] in the past.� Morbidly obese, history of hypertension, type 2 diabetes who complains
of progressive shortness of breath for the last week.� Pulse ox was 90% on room air. [place] to be due to untreated CANDY/OHS.
Acute hypoxemic respiratory insufficiency currently on 8L NC, pulse ox 95% (usually not on supplemental oxygen)
Dyspnea
proBNP 1760/negative troponins
Negative COVID
Chest x-ray reviewed: Marked left hemidiaphragm elevation on the left hemithorax with volume loss. Moderate left basilar atelectasis/cannot rule out pneumonia.
Atrial fibrillation with rapid ventricular response-heart rate in the 120s-130s
Suspect component of heart failure acute-unknown type
Conditions present prior admission:
Hypertension
Hypercholesterolemia
Type 2 diabetes
Morbid obesity
Bedbound status for the last 15 years
Chronic arthritis
Plan
Respiratory status stable tolerating BiPAP 18/8 cm
Supplemental oxygen if needed
Assess discharge supplemental oxygen needs prior to discharge
Note: ABG 7.42/59/62-suspect obesity hypoventilation syndrome
Patient requires noninvasive volume ventilation due to OHS, bilevel has been considered and ruled out including bilevel VAPS. Patient requires pressures greater than 30 cmH2O which is not supported by bilevel VAPS due to body habitus. A
traditional ventilator will exceed pressures greater than 30 mm of water with a max pressure of 50 mm of water.
Diuresis as tolerated
Monitor renal function, electrolytes, intake/output, lower extremity edema and weight
Replace electrolytes as needed
Continue diuresis, negative fluid balance noted
Heart rate better controlled, weight down 10kg since admission
Dilt changed to oral
Heparin changed to Eliquis
Patient is bedbound and, likely unable to follow-up
He only has been followed by his primary care doctor who comes to his house.
Dr. Rivera contacted his primary physician, Dr. Jonny Brice ([phone])
He is familiar with dealing with DME companies but they may need help with setting up BiPAP. We discussed with him that we will be setting up upon discharge from the hospital
Please make sure DME company information has been forwarded to the primary physician for him to follow-up
Primary will reach out to our office if patient needs to follow-up with us.
May require telemedicine visit with sleep nurse practitioner/sleep clinic
Plan to set up home BiPAP with 6 L, to be used with sleep
Note the patient's CO2 has improved from 78 to 59
Abnormal chest x-ray: Left shift of the mediastinum to the left. This is also contributing to hypoxemia as well as his morbid obesity.
We suspect left lower lobe abnormality more consistent with atelectasis.
Significant left hemidiaphragm elevation.
Encourage incentive spirometry
Avoid sedatives
Prior x-rays will be helpful to compare.
Afebrile/leukocytosis improving. No indication for antibiotics.
Unable to repeat upright films due to severe back pain
Lastly, given multiple comorbidities, bedbound/sedentary, strongly recommend addressing CODE STATUS
This should be addressed through primary physician
DVT prophylaxis-on Eliquis
Reviewed with nursing
Subjective Data
-
Date of Service:
Date of Service: October 20, 2023
Chief Complaint: Pulmonary Follow Up (Acute on chronic hypercapnic respiratory failure/rapid atrial fibrillation) and Dyspnea Follow Up
Subjective:
Tolerating BiPAP, no complaints of shortness of breath, chest pain or abdominal pain
Review of Systems
General: Other (Per HPI)
Objective Data
Data Reviewed
Vital Signs / I&O:
Vital Signs
Temp Pulse Resp BP Pulse Ox
97.2 F 93 20 145/90 94
10/20/23 07:25 10/20/23 07:25 10/20/23 07:25 10/20/23 07:25 10/20/23 07:25
Intake and Output
10/19/23 10/20/23 10/21/23
06:59 06:59 06:59
Intake Total 960 / 960 1320 / 1320
Output Total 500 / 500 1600 / 1600
Balance 460 / 460 -280 / -280
SaO2: 94
Nasal Cannula flow liters per minute: 4
Physical Exam
General: Respiratory Distress (n), Comfortable and Other (Large neck, morbidly obese, bedbound)
HEENT: Normocephalic (Large neck), Anicteric and Moist Mucous Membranes
Cardiovascular: Irregular Rhythm, Murmur (n), Rub (n) and Peripheral Edema (1+, right greater than left)
Respiratory: Clear, Wheeze (n), Crackles (n), Rhonchi (n), Non-Labored Respirations and Other (Decreased breath sounds throughout, limited based on BH)
GI: Soft, Distended (Morbidly obese) and Non Tender
Neurology: Awake, Alert, No Motor Deficits and Depressed (appearing)
Skin: Warm, Dry, Good Color, Cyanosis (n), Jaundice (n) and Bruising (n)
Labs/Micro/Reports
Lab Data
10/18/23 04:09
10/20/23 07:28
[2023-10-20 13:14] LABS: Glucose - Point of Care 130 mg/dl (70-99)
[2023-10-20 15:20] VITALS: BP 139/88
[2023-10-20 17:37] LABS: Glucose - Point of Care 115 mg/dl (70-99)
[2023-10-20] MEDS: XANAX 1 MG PO (21:09)
[2023-10-20] MEDS: LIPITOR 10 MG PO (21:09)
[2023-10-20 21:34] LABS: Glucose - Point of Care 116 mg/dl (70-99)
[2023-10-20 22:48] VITALS: PULSE 2
[2023-10-20 23:09] VITALS: BP 121/81
[2023-10-21] VITALS (7 sets, daily range): BP systolic 124–161; BP diastolic 70–99; PULSE 2; BMI 52.7
[2023-10-21 07:17] LABS: Glucose - Point of Care 113 mg/dl (70-99)
[2023-10-21] MEDS: LASIX 40 MG PO (09:16)
[2023-10-21] MEDS: ALDACTONE 25 MG PO (09:18)
[2023-10-21] MEDS: CELEXA 10 MG PO (09:19)
[2023-10-21] MEDS: ELIQUIS 5 MG PO ×2 (09:21→20:51)
[2023-10-21] MEDS: JARDIANCE 10 MG PO (09:22)
[2023-10-21] MEDS: CARDIZEM CD 180 MG PO (09:23)
[2023-10-21] MEDS: BUSPAR 10 MG PO (09:23)
[2023-10-21] MEDS: DESENEX/MITRAZOL/ZEASORB 1 APPLIC TOPICAL ×2 (09:26→21:58)
[2023-10-21 09:44] LABS: Blood Urea Nitrogen 27 mg/dl (9-20); Calcium 9.4 mg/dl (8.4-10.2); Carbon Dioxide 29 mmol/L (22-30); Chloride 92 mmol/L (98-107); Estimated Creatinine Clearance > 125 ml/min; Glucose 112 mg/dl (70-99); Sodium 131 mmol/L (135-145); eGFR > 60.00
--- NOTE | 2023-10-21 10:43 | W.PN.PUL.V3 ---
Today's Communication / Plan
-
BiPAP
Supplemental oxygen
Diuresis as tolerated
Hope to be able to discharge with BiPAP
Assessment
-
73-year-old man that for the last 15 years has been bedbound due to arthritis and body habitus, first admission to [facility], has been admitted to [facility] [place] in the past.� Morbidly obese, history of hypertension, type 2 diabetes who complains
of progressive shortness of breath for the last week.� Pulse ox was 90% on room air. [place] to be due to untreated CANDY/OHS.
Acute hypoxemic respiratory insufficiency currently on 8L NC, pulse ox 95% (usually not on supplemental oxygen)
Dyspnea
proBNP 1760/negative troponins
Negative COVID
Chest x-ray reviewed: Marked left hemidiaphragm elevation on the left hemithorax with volume loss. Moderate left basilar atelectasis/cannot rule out pneumonia.
Atrial fibrillation with rapid ventricular response-heart rate in the 120s-130s
Suspect component of heart failure acute-unknown type
Conditions present prior admission:
Hypertension
Hypercholesterolemia
Type 2 diabetes
Morbid obesity
Bedbound status for the last 15 years
Chronic arthritis
Plan
Patient is stable from a pulmonary perspective and tolerating BiPAP 18/8 cm
Supplemental oxygen continues as needed
We will assess discharge supplemental oxygen needs prior to discharge
Note: ABG 7.42/59/62-suspect obesity hypoventilation syndrome
Patient requires noninvasive volume ventilation due to OHS, bilevel has been considered and ruled out including bilevel VAPS. Patient requires pressures greater than 30 cmH2O which is not supported by bilevel VAPS due to body habitus. A
traditional ventilator will exceed pressures greater than 30 mm of water with a max pressure of 50 mm of water.
Diuresis continues as tolerated
Follow renal function, electrolytes, intake/output, lower extremity edema and weight
Continue to replace electrolytes as needed
Continue diuresis, negative fluid balance noted
Heart rate better controlled, weight down 10kg since admission
Dilt changed to oral
Heparin changed to Eliquis
Patient is bedbound and, likely unable to follow-up
He only has been followed by his primary care doctor who comes to his house.
Dr. Rivera contacted his primary physician, Dr. Jonny Brice ([phone])
He is familiar with dealing with DME companies but they may need help with setting up BiPAP. We discussed with him that we will be setting up upon discharge from the hospital
Please make sure DME company information has been forwarded to the primary physician for him to follow-up
Primary will reach out to our office if patient needs to follow-up with us.
May require telemedicine visit with sleep nurse practitioner/sleep clinic
Plan to set up home BiPAP 18/18 with 6 L, to be used with sleep
Note the patient's CO2 has improved from 78 to 59-mental status is also improved
Abnormal chest x-ray: Left shift of the mediastinum to the left. This is also contributing to hypoxemia as well as his morbid obesity.
We suspect left lower lobe abnormality more consistent with atelectasis.
Significant left hemidiaphragm elevation.
Incentive spirometry encouraged
Avoid sedatives if possible
Prior x-rays will be helpful to compare.
Afebrile/leukocytosis improving.
No indication for antibiotics.
Unable to repeat upright films due to severe back pain
Given the patient's multiple comorbidities, bedbound/sedentary, strongly recommend addressing CODE STATUS
This should be addressed through primary physician
DVT prophylaxis-on Eliquis
Reviewed with nursing
Subjective Data
-
Date of Service:
Date of Service: October 21, 2023
Chief Complaint: Pulmonary Follow Up (Acute on chronic hypercapnic respiratory failure/rapid atrial fibrillation) and Dyspnea Follow Up
Subjective:
Slept well, tolerated BiPAP, no complaints of shortness of breath, alert and oriented, no chest pain or abdominal pain
Review of Systems
General: Other (Per HPI)
Objective Data
Data Reviewed
Vital Signs / I&O:
Vital Signs
Temp Pulse Resp BP Pulse Ox
97.5 F 92 18 161/99 92
10/21/23 07:15 10/21/23 09:23 10/21/23 07:15 10/21/23 09:23 10/21/23 07:15
Intake and Output
10/20/23 10/21/23 10/22/23
06:59 06:59 06:59
Intake Total 1320 / 1320 900 / 900
Output Total 1600 / 1600 1150 / 1150
Balance -280 / -280 -250 / -250
SaO2: 92
Nasal Cannula flow liters per minute: 2
Physical Exam
General: Respiratory Distress (n), Comfortable and Other (Large neck, morbidly obese, bedbound)
HEENT: Normocephalic (Large neck), Anicteric and Moist Mucous Membranes
Cardiovascular: Irregular Rhythm, Murmur (n), Rub (n) and Peripheral Edema (1+, right greater than left)
Respiratory: Clear, Wheeze (n), Crackles (n), Rhonchi (n), Non-Labored Respirations and Other (Decreased breath sounds throughout, limited based on BH)
GI: Soft, Distended (Morbidly obese) and Non Tender
Neurology: Awake, Alert, No Motor Deficits and Depressed (appearing)
Skin: Warm, Dry, Good Color, Cyanosis (n), Jaundice (n) and Bruising (n)
Labs/Micro/Reports
Lab Data
10/18/23 04:09
10/21/23 06:33
--- NOTE | 2023-10-21 11:58 | W.PN.HOSP.TC ---
Today's Communication/Plan
-
discharge home tomorrow
pending DME delivery at home
Assessment / Plan
Assessment / Plan
#Acute on chronic hypoxemic respiratory failure
#Dyspnea
� Most likely has underlying CANDY/OHS due to obesity
� Acute symptoms/hypoxia most likely secondary to atrial fibrillation and volume overload
� continue night time BiPAP use.
� Avoid sedatives, benzodiazepines
- TTE showing preserved EF
- Thromboembolism also on dx although less likely as already have other likely source, and alert already on Eliquis which would not change plan even if PE study is positive; DVT study negative
- weight down again today, continue current dose of lasix 80mg/d
#Atrial fibrillation with RVR
� Heparin drip has been switched to Eliquis
� IV Cardizem drip - transitioned to oral Cardizem
� Follow cardiology recommendations
#Possible decompensated heart failure, unknown type
� May also be exacerbated by acute arrhythmia
� TTE showing preserved EF
� Continue on PO diuretics
#Most likely underlying CANDY/OHS
� Follow-up pulmonary outpatient
� BiPAP arrangement done
#Essential Hypertension
#Hyperlipidemia
�BP elevated today, PRN hydralazine ordered
-increase dose of dilt or aldactone if not improved
#DM
-cont AISS, Trulicity
#Morbid Obesity
-weight loss
F/u bariatrics outpatient
# Hyponatremia
-continue
Bed bound
DVT ppx - eliquis
Anticipated Discharge: Within 24 hours
Subjective/Interval History
-
Date of Service: October 21, 2023
no complains overnight
Objective Data
-
Labs:
Laboratory Results
10/21/23
06:33
Sodium 131 L
Potassium 4.0
Chloride 92 L
Carbon Dioxide 29
BUN 27 H
Creatinine 0.6 L
Glucose 112 H
Calcium 9.4
Vital Signs:
Vital Signs
Temp Pulse Resp BP Pulse Ox
97.5 F 92 18 161/99 92
10/21/23 07:15 10/21/23 09:23 10/21/23 07:15 10/21/23 09:23 10/21/23 10:46
I&O
10/20/23 10/21/23 10/22/23
06:59 06:59 06:59
Intake Total 1320 / 1320 900 / 900
Output Total 1600 / 1600 1150 / 1150
Balance -280 / -280 -250 / -250
Review of Systems
-
Respiratory: Reports No Symptoms
Cardiac: Reports No Symptoms
Abdomen/GI: Reports No Symptoms
Physical Exam
-
General: Morbidly Obese
HEENT: Atraumatic; Negative Oxygen
Cardiac: Irregular Rhythm
Musculoskeletal: No Edema
Neuro: Awake, Alert, Oriented and No Motor Deficits
Psych: Calm
[2023-10-21 12:24] LABS: Glucose - Point of Care 105 mg/dl (70-99)
--- NOTE | 2023-10-21 16:01 | CM ---
Reviewed the chart notes and spoke with the patient at the bedside. IMM signed and placed on the chart. Bariatric bed and BiPAP have been order per notes. Awaiting delivery. CM continues to be available to patient/family and is monitoring
medical plan for needs at discharge.
Plan: Discharge to home with [facility].
[2023-10-21 17:11] LABS: Glucose - Point of Care 124 mg/dl (70-99)
[2023-10-21] MEDS: LIPITOR 10 MG PO (20:51)
[2023-10-21] MEDS: XANAX 1 MG PO (20:57)
[2023-10-21 21:53] LABS: Glucose - Point of Care 116 mg/dl (70-99)
[2023-10-22] VITALS (7 sets, daily range): BP systolic 125–137; BP diastolic 66–86; PULSE 2–95; BMI 52.0
[2023-10-22 07:54] LABS: Glucose - Point of Care 110 mg/dl (70-99)
--- NOTE | 2023-10-22 09:13 | W.PN.PUL3 ---
Today's Communication / Plan
-
continue bipap nocturnal and PRN use
home pap set up per team
discharge planning
outpatient sleep fu recommended
Assessment
-
73-year-old man that for the last 15 years has been bedbound due to arthritis and body habitus, first admission to [facility], has been admitted to [place] in the past.� Morbidly obese, history of hypertension, type 2 diabetes who complains
of progressive shortness of breath for the last week.� Pulse ox was 90% on room air. [place] to be due to untreated CANDY/OHS.
Acute hypoxemic respiratory insufficiency currently on 8L NC, pulse ox 95% (usually not on supplemental oxygen)
Dyspnea
proBNP 1760/negative troponins
Negative COVID
Chest x-ray reviewed: Marked left hemidiaphragm elevation on the left hemithorax with volume loss. Moderate left basilar atelectasis/cannot rule out pneumonia.
Atrial fibrillation with rapid ventricular response-heart rate in the 120s-130s
Suspect component of heart failure acute-unknown type
Conditions present prior admission:
Hypertension
Hypercholesterolemia
Type 2 diabetes
Morbid obesity
Bedbound status for the last 15 years
Chronic arthritis
Plan
Patient is stable from a pulmonary perspective and tolerating BiPAP 18/8 cm
Stable on room air, sedentary at home, no eval for home use
Note: ABG 7.42/59/62-suspect obesity hypoventilation syndrome
Home BIPAP set up
Patient requires noninvasive volume ventilation due to OHS, bilevel has been considered and ruled out including bilevel VAPS. Patient requires pressures greater than 30 cmH2O which is not supported by bilevel VAPS due to body habitus. A
traditional ventilator will exceed pressures greater than 30 mm of water with a max pressure of 50 mm of water.
Diuresis continues as tolerated
Follow renal function, electrolytes, intake/output, lower extremity edema and weight
Continue to replace electrolytes as needed
Continue diuresis, negative fluid balance noted
Heart rate better controlled, weight down 10kg since admission
Dilt changed to oral
Heparin changed to Eliquis
Patient is bedbound and, likely unable to follow-up
He only has been followed by his primary care doctor who comes to his house.
Dr. Rivera contacted his primary physician, Dr. Jonny Brice ([phone])
He is familiar with dealing with DME companies but they may need help with setting up BiPAP. We discussed with him that we will be setting up upon discharge from the hospital
Please make sure DME company information has been forwarded to the primary physician for him to follow-up
Primary will reach out to our office if patient needs to follow-up with us.
May require telemedicine visit with sleep nurse practitioner/sleep clinic
Plan to set up home BiPAP 18/18 with 6 L, to be used with sleep
Note the patient's CO2 has improved from 78 to 59-mental status is also improved
Abnormal chest x-ray: Left shift of the mediastinum to the left. This is also contributing to hypoxemia as well as his morbid obesity.
We suspect left lower lobe abnormality more consistent with atelectasis.
Significant left hemidiaphragm elevation.
Incentive spirometry encouraged
Avoid sedatives if possible
Prior x-rays will be helpful to compare.
Afebrile/leukocytosis improving.
No indication for antibiotics.
Unable to repeat upright films due to severe back pain
Given the patient's multiple comorbidities, bedbound/sedentary, strongly recommend addressing CODE STATUS
This should be addressed through primary physician
DVT prophylaxis-on Eliquis
Reviewed with nursing
Discharge planning per team
Subjective Data
-
Date of Service:
Date of Service: October 22, 2023
Chief Complaint: Pulmonary Follow Up (Acute on chronic hypercapnic respiratory failure/rapid atrial fibrillation) and Dyspnea Follow Up
Subjective:
patient seen and examined, no acute events on
no new complaints
remains stable on room air
Objective Data
Data Reviewed
Vital Signs / I&O / Oxygen:
Vital Signs
Temp Pulse Resp BP Pulse Ox
97.5 F 86 20 136/85 92
10/22/23 07:45 10/22/23 07:45 10/21/23 23:12 10/22/23 07:45 10/22/23 07:45
Intake and Output
10/21/23 10/22/23 10/23/23
06:59 06:59 06:59
Intake Total 900 / 900 740 / 740
Output Total 1150 / 1150 2150 / 2150
Balance -250 / -250 -1410 / -1410
SaO2 92
Nasal Cannula flow liters per 2
minute
Physical Exam
General: Respiratory Distress (n), Comfortable and Other (Large neck, morbidly obese, bedbound)
HEENT: Normocephalic (Large neck), Anicteric and Moist Mucous Membranes
Cardiovascular: Irregular Rhythm, Murmur (n), Rub (n) and Peripheral Edema (1+, right greater than left)
Respiratory: Clear, Wheeze (n), Crackles (n), Rhonchi (n), Non-Labored Respirations and Other (Decreased breath sounds throughout, limited based on BH)
GI: Soft, Distended (Morbidly obese) and Non Tender
Neurology: Awake, Alert, No Motor Deficits and Depressed (appearing)
Skin: Warm, Dry, Good Color, Cyanosis (n), Jaundice (n) and Bruising (n)
Labs/Micro/Reports
Lab Data
10/18/23 04:09
10/21/23 06:33
--- NOTE | 2023-10-22 09:16 | W.HF.CON ---
Heart Failure
- LV Function
Left ventricular function study result: LV Ejection fraction >40%
Ejection Fraction Percentage: 50-55
- ARNI
Patient already on ARNI: No
Heart Failure ARNI Not Indicated: LV Ejection Fraction >/= 40%
- ACEI/ARB
Patient already on ACEI/ARB: No
Heart Failure ACEI/ARB Not Indicated: LV Ejection Fraction > 40%
- Beta Pat
Patient already on Evidence Based Beta Pat: No
Heart Failure Evidence Based Beta Pat Not Indicated: LV Ejection Fraction > 40%
- Mineralocorticord Receptor Antagonist
Patient already on MRA: Yes
- SGLT-2 Inhibitor
Patient already on SGLT-2 Inhibitor: Yes
- Afib Anticoagulation
Patient already on Anticoagulation for Afib: Yes
- NYHA CHF Classification
NYHA CHF Classification Level: Class III - Symptoms w/ min exertion, interferes w/ nml daily activity
- ACC/AHA Stage
ACC/AHA Stage: Stage C: Symptomatic Heart Failure
[2023-10-22] MEDS: ALDACTONE 25 MG PO (09:26)
[2023-10-22] MEDS: LASIX 40 MG PO (09:26)
[2023-10-22] MEDS: BUSPAR 10 MG PO (09:26)
[2023-10-22] MEDS: CARDIZEM CD 180 MG PO (09:26)
[2023-10-22] MEDS: JARDIANCE 10 MG PO (09:26)
[2023-10-22] MEDS: CELEXA 10 MG PO (09:27)
[2023-10-22] MEDS: ELIQUIS 5 MG PO ×2 (09:27→21:14)
[2023-10-22] MEDS: DESENEX/MITRAZOL/ZEASORB 1 APPLIC TOPICAL ×2 (09:27→21:13)
--- NOTE | 2023-10-22 13:30 | W.PN.HOSP.TC ---
Today's Communication/Plan
-
BiPAP 18/8 with 6 L at night and naps
Continue O2 as needed at home,
Follow-up PCP outpatient
Follow-up pulmonary, cardiology if needed by PCP, otherwise can continue workup and further medication titration with PCP
May require telemedicine visit for sleep clinic/cardiology if desired
Continue Eliquis, Lasix, spironolactone, diltiazem
Assessment / Plan
Assessment / Plan
#Acute on chronic hypoxemic respiratory failure
#Dyspnea
� Most likely has underlying CANDY/OHS due to obesity
� Acute symptoms/hypoxia most likely secondary to atrial fibrillation and volume overload
� continue night time BiPAP use.
� Avoid sedatives, benzodiazepines
- TTE showing preserved EF
- Thromboembolism also on dx although less likely as already have other likely source, and alert already on Eliquis which would not change plan even if PE study is positive; DVT study negative
- continue current dose of lasix 40mg daily
#Atrial fibrillation with RVR
� Heparin drip has been switched to Eliquis
� IV Cardizem drip - transitioned to oral Cardizem
� Follow cardiology recommendations
-Cards deferrign HFpEF and Afib treatment to PCP
#Possible decompensated heart failure, unknown type
� May also be exacerbated by acute arrhythmia
� TTE showing preserved EF
� Continue on PO diuretics
#Most likely underlying CANDY/OHS
� Follow-up pulmonary outpatient
� BiPAP arrangement done - use during Nights/Naps - BiPAP 18/8 with 6L O2
#Essential Hypertension
#Hyperlipidemia
-cont dilt, spironolactone, lasix
#DM
-cont AISS, Trulicity
#Morbid Obesity
-weight loss
F/u bariatrics outpatient
# Hyponatremia
-continue to monitor outpatient
Bed bound
DVT ppx - eliquis
More than 30 minutes spent in discharge including
Final examination of the patient
Summarizing hospital stay
Instructions for continuing care to all relevant caregivers
Preparation of discharge records, prescriptions, and referral forms
Total time spent (35 in minutes):
Anticipated Discharge: Today
Subjective/Interval History
-
Date of Service: October 22, 2023
no acute events, mental status is lucid
Objective Data
-
Vital Signs:
Vital Signs
Temp Pulse Resp BP Pulse Ox
97.5 F 86 20 136/85 92
10/22/23 07:45 10/22/23 09:26 10/21/23 23:12 10/22/23 09:26 10/22/23 10:37
I&O
10/21/23 10/22/23 10/23/23
06:59 06:59 06:59
Intake Total 900 / 900 740 / 740
Output Total 1150 / 1150 2150 / 2150
Balance -250 / -250 -1410 / -1410
Review of Systems
-
Respiratory: Reports No Symptoms
Cardiac: Reports No Symptoms
Abdomen/GI: Reports No Symptoms
Physical Exam
-
General: Morbidly Obese
HEENT: Atraumatic; Negative Oxygen
Cardiac: Irregular Rhythm
Musculoskeletal: No Edema
Neuro: Awake, Alert, Oriented and No Motor Deficits
Psych: Calm
Data Reviewed
-
Diagnostic Radiology: Image personally visualized and interpreted and Report Reviewed by me
Ultrasound: Image personally visualized and interpreted and Report Reviewed by me
Labs: Labs Reviewed by me
[2023-10-22 13:34] LABS: Glucose - Point of Care 103 mg/dl (70-99)
--- NOTE | 2023-10-22 13:35 | W.DS.TRANS ---
DC Summary - Bolt Sawyer
-
Discharge Instructions:
Discharge Diagnosis/Procedures #Acute on chronic hypoxemic respiratory failure
#Dyspnea
#Most likely has underlying CANDY/OHS due to
obesity
#Atrial fibrillation with RVR
#Suspect component of heart failure acute-
unknown type
Diet Low Cholesterol,Low Fat,Restrict fluids to 64 oz
,Diabetic, Carb Controlled
Blood Work BMP q 2 weeks x3 and then q3 months => results
will need to go to his PCP, periodic CBC to
assure no occult bleeding on Eliquis
Instructions: *PCP/Other [facility] Heart Failure Instructions
Stand-Alone Forms:
Changes to Home Medications: Yes
Discharge Medications:
DC Medications w/original date entered in [employer]
alprazolam 0.5 mg tablet 1 mg PO HS Mental Health/Anxiety 10/12/23
atorvastatin 10 mg tablet 10 mg PO HS High Cholesterol 10/12/23
buspirone 10 mg tablet 10 mg PO DAILY Mental Health/Anxiety 10/12/23
citalopram 10 mg tablet 10 mg PO DAILY Depression 10/12/23
dulaglutide 4.5 mg/0.5 mL subcutaneous pen injector (Trulicity) 4.5 mg SC QWEEK Diabetes 10/12/23
apixaban 5 mg tablet (Eliquis) 5 mg PO BID 30 days #60 tabs 10/14/23
diltiazem HCl 180 mg capsule,extended release 24 hr 180 mg PO DAILY 30 days #30 caps 10/22/23
empagliflozin 10 mg tablet (Jardiance) 10 mg PO DAILY 30 days #30 tabs 10/22/23
furosemide 40 mg tablet 40 mg PO DAILY 30 days #30 tabs 10/22/23
miconazole nitrate 2 % topical powder (Miconazorb AF) 1 applic topical BID #85 grams 10/22/23
spironolactone 25 mg tablet 25 mg PO DAILY 30 days #30 tabs 10/22/23
Home Medication Changes
apixaban 5 mg tablet (Eliquis) 5 mg PO BID 30 days #60 tabs 10/14/23
diltiazem HCl 180 mg capsule,extended release 24 hr 180 mg PO DAILY 30 days #30 caps 10/22/23
empagliflozin 10 mg tablet (Jardiance) 10 mg PO DAILY 30 days #30 tabs 10/22/23
furosemide 40 mg tablet 40 mg PO DAILY 30 days #30 tabs 10/22/23
miconazole nitrate 2 % topical powder (Miconazorb AF) 1 applic topical BID #85 grams 10/22/23
spironolactone 25 mg tablet 25 mg PO DAILY 30 days #30 tabs 10/22/23
Pending Results: No
[2023-10-22] MEDS: PREVNAR 20 0.5 ML IM (13:38)
--- NOTE | 2023-10-22 15:07 | CM ---
Patient was scheduled for discharge on this date. Bariatric bed has been delivered to home. Patient at 96% on RA. No need for O2. New Bipap use. Patient was originally scheduled for transport to home via bariatric ambulance services for
5:30-6:00PM this evening. [facility] is unable to deliver and educate on the Bipap that late. Respiratory therapist will educate and teach today on the Bipap and will return tomorrow to educate the patient and his aide. Bipap will be delivered on
Sunday10/23/23. notified and has agreed with deferred discharge as patient needs the Bipap. Transportation has been rescheduled for 10/23/23 @ 11:00am. MD, Patient, and team notified.
[2023-10-22 17:08] LABS: Glucose - Point of Care 97 mg/dl (70-99)
[2023-10-22] MEDS: LIPITOR 10 MG PO (21:14)
[2023-10-22] MEDS: XANAX 1 MG PO (21:14)
[2023-10-22 21:25] LABS: Glucose - Point of Care 118 mg/dl (70-99)
[2023-10-22] MEDS: TYLENOL 1000 MG PO (21:59)
[2023-10-23 03:15] VITALS: PULSE 2; PULSE 87
[2023-10-23 05:46] VITALS: BMI 51.6
[2023-10-23 06:00] VITALS: BMI 51.6
[2023-10-23 07:01] LABS: Glucose - Point of Care 101 mg/dl (70-99)
[2023-10-23 07:32] VITALS: BP 146/79
[2023-10-23] MEDS: LASIX 40 MG PO (08:32)
[2023-10-23] MEDS: CARDIZEM CD 180 MG PO (08:32)
[2023-10-23] MEDS: BUSPAR 10 MG PO (08:32)
[2023-10-23] MEDS: ELIQUIS 5 MG PO (08:32)
[2023-10-23] MEDS: JARDIANCE 10 MG PO (08:32)
[2023-10-23] MEDS: CELEXA 10 MG PO (08:33)
[2023-10-23] MEDS: DESENEX/MITRAZOL/ZEASORB 1 APPLIC TOPICAL (08:33)
[2023-10-23] MEDS: ALDACTONE 25 MG PO (08:33)
[2023-10-23 10:55] VITALS: BP 134/85
--- NOTE | 2023-10-23 10:57 | CM ---
Received call from Patient's who stated that she would like a bed rail for patient's bed. This was communicated to PRUDENCIO Allison [facility] liason who stated that she will explore availability and Medicare coverage guidelines.
Plan: Case management will continue to follow and assist with discharge planning. Home with VN services.
--- NOTE | 2023-10-23 11:24 | W.PN.HOSP.TC ---
Addendum entered and electronically signed by Uday Forbes MD 10/24/23 15:23:
[id number]
Original Note:
Today's Communication/Plan
-
BiPAP 18/8 with 6 L at night and naps
Continue O2 as needed at home,
Follow-up PCP outpatient
Follow-up pulmonary, cardiology if needed by PCP, otherwise can continue workup and further medication titration with PCP
May require telemedicine visit for sleep clinic/cardiology if desired
Continue Eliquis, Lasix, spironolactone, diltiazem
Assessment / Plan
Assessment / Plan
#Acute on chronic hypoxemic respiratory failure
#Dyspnea
� Most likely has underlying CANDY/OHS due to obesity
� Acute symptoms/hypoxia most likely secondary to atrial fibrillation and volume overload
� continue night time BiPAP use.
� Avoid sedatives, benzodiazepines
- TTE showing preserved EF
- Thromboembolism also on dx although less likely as already have other likely source, and alert already on Eliquis which would not change plan even if PE study is positive; DVT study negative
- continue current dose of lasix 40mg daily
#Atrial fibrillation with RVR
� Heparin drip has been switched to Eliquis
� IV Cardizem drip - transitioned to oral Cardizem
� Follow cardiology recommendations
-Cards deferring HFpEF and Afib treatment to PCP
#Possible decompensated heart failure, unknown type
� May also be exacerbated by acute arrhythmia
� TTE showing preserved EF
� Continue on PO diuretics
#Most likely underlying CANDY/OHS
� Follow-up pulmonary outpatient
� BiPAP arrangement done - use during Nights/Naps - BiPAP 18/8 with 6L O2
#Essential Hypertension
#Hyperlipidemia
-cont dilt, spironolactone, lasix
#DM
-cont AISS, Trulicity
#Morbid Obesity
-weight loss
F/u bariatrics outpatient
# Hyponatremia
-continue to monitor outpatient
Bed bound
DVT ppx - eliquis
More than 30 minutes spent in discharge including
Final examination of the patient
Summarizing hospital stay
Instructions for continuing care to all relevant caregivers
Preparation of discharge records, prescriptions, and referral forms
Total time spent (35 in minutes):
Anticipated Discharge: Today
Subjective/Interval History
-
Date of Service: October 23, 2023
no acute events
Objective Data
-
Vital Signs:
Vital Signs
Temp Pulse Resp BP Pulse Ox
97.9 F 96 16 134/85 100
10/23/23 10:55 10/23/23 10:55 10/23/23 10:55 10/23/23 10:55 10/23/23 10:55
I&O
10/22/23 10/23/23 10/24/23
06:59 06:59 06:59
Intake Total 740 / 740 480 / 480
Output Total 2150 / 2150 950 / 950
Balance -1410 / -1410 -470 / -470
Review of Systems
-
Respiratory: Reports No Symptoms
Cardiac: Reports No Symptoms
Abdomen/GI: Reports No Symptoms
Physical Exam
-
General: Morbidly Obese
HEENT: Atraumatic; Negative Oxygen
Cardiac: Irregular Rhythm
Musculoskeletal: No Edema
Neuro: Awake, Alert, Oriented and No Motor Deficits
Psych: Calm
Data Reviewed
-
Diagnostic Radiology: Image personally visualized and interpreted and Report Reviewed by me
Ultrasound: Image personally visualized and interpreted and Report Reviewed by me
Labs: Labs Reviewed by me
--- NOTE | 2023-10-23 14:42 | VNURNOTE ---
Liaison called [employer] to inquire about longer side rail as requested by patient's . According to Jose Angel at [employer] the bariatric bed was delivered with appropriate side rails and there is no 'longer' version. Jose Angel recommended trapeze for patient
repositioning and turning. Liaison discussed trapeze use with patient's and she stated that patient has one from previous bed that was replaced. Patient's was in agreement to put trapeze on the new bed and have PT educate both on proper
use and turning.
== END 2023-10-23 11:29 | disposition home health service (06) | DRG 291 ==
LOC: 2 NORTH 01:21
PROVIDERS: Hospitalist; Internal Medicine Cardiovascular Disease; Nurse Practitioner Family; Physician Assistant; ADMITTING PHYSICIAN Internal Medicine; ATTENDING PHYSICIAN Internal Medicine; CONSULT PHYSICIAN Internal Medicine Cardiovascular Disease; CONSULT PHYSICIAN Internal Medicine Critical Care Medicine; EMERGENCY PHYSICIAN Emergency Medicine; FAMILY PHYSICIAN Internal Medicine
DX: I11.0 Hypertensive heart disease with heart failure (principal); J96.21 Acute and chronic respiratory failure with hypoxia; E66.2 Morbid (severe) obesity with alveolar hypoventilation; Z68.43 Body mass index [BMI] 50.0-59.9, adult; J98.11 Atelectasis; E87.3 Alkalosis; E87.1 Hypo-osmolality and hyponatremia; I50.30 Unspecified diastolic (congestive) heart failure; Z11.52 Encounter for screening for COVID-19; I48.91 Unspecified atrial fibrillation; M19.90 Unspecified osteoarthritis, unspecified site; Z74.01 Bed confinement status; E78.00 Pure hypercholesterolemia, unspecified; E11.9 Type 2 diabetes mellitus without complications; Z79.01 Long term (current) use of anticoagulants
CPT/HCPCS: 36600; 71045; 80048; 80053; 80061; 82805; 82962; 83036; 83735; 83880; 84100; 84443; 84484; 85025; 85027; 85730; 87502; 87811; 90677; 93005; 93306; 93970; 94660; 94762; 96365; 96366; 96375; 99285; G0009